=== PATIENT | male | born 1965 | race Caucasian/White ===

== ENCOUNTER → 2018-12-07 08:36 | Outpatient (CLI) | payer OTHER, SELFPAY ==
[2018-12-07 09:14] LABS: Basophils # 0.1 K/mm3 (0-0.2); Basophils % 1.2 % (0.1-2.0); Eosinophils # 0.2 K/mm3 (0.0-0.4); Hematocrit 40.4 % (42.0-52.0); Hemoglobin 13.4 g/dL (14.1-18.0); Lymphocytes # 2.3 K/mm3 (0.7-4.5); Mean Corpuscular HGB Conc 33.2 g/dL (31.8-35.4); Mean Corpuscular Hemoglobin 29.1 pg (27.0-31.2); Mean Corpuscular Volume 87.7 fl (80-94); Mean Platelet Volume 8.2 fl (7.4-10.4); Monocytes # 2.5 K/mm3 (0.1-1.0); Monocytes % 47.8 % (1.7-9.3); Neutrophils # 0.2 K/mm3 (1.8-7.8); Platelet Count 258 K/mm3 (142-424); Red Blood Count 4.61 M/mm3 (4.60-6.20); Red Cell Distribution Width 12.2 % (11.5-17.5); White Blood Count 5.3 K/mm3 (4.8-10.8)
[2018-12-07 09:35] LABS: Neutrophils % 3.1 % (37.0-80.0)
[2018-12-07 09:36] LABS: MANUAL DIFFERENTIAL MANUAL DIFFERENTIAL (MANUAL DIFF)
[2018-12-07 09:50] LABS: Hemoglobin A1C 6.1 % (0.0-7.0)
[2018-12-07 10:46] LABS: Eosinophils % 1 % (0-3); Lymphocytes % 39 % (10-50); Monocytes % 2 % (2-9); Neutrophils % 49 % (42-76); Platelet Estimate Normal; RBC Morphology Normal; Total Cells Counted 100
[2018-12-07 11:44] LABS: Alanine Aminotransferase 32 U/L (12-78); Albumin Level 3.7 gm/dL (3.4-5.0); Albumin/Globulin Ratio 1.1 (1.1-1.8); Alkaline Phosphatase 78 U/L (46-116); Anion Gap 15.3 mEq/L (5-15); Aspartate Amino Transferase 15 U/L (15-37); Bilirubin,Total 0.3 mg/dL (0.2-1.0); Blood Urea Nitrogen 16 mg/dL (7-18); Calcium 8.7 mg/dL (8.5-10.1); Carbon Dioxide 26 mmol/L (21.0-32.0); Chloride 106 mmol/L (98-107); Chol/HDL Ratio 3.3 (1-3.5); Cholesterol 192 mg/dL (140-200); Creatinine,Serum 0.86 mg/dL (0.70-1.30); Estimated Glomerular Filt Rate 94 ml/min (>60); GFR (African American) 113 ML/MIN (>60); Globulin 3.3 gm/dl (1.3-3.2); Glucose 106 mg/dL (74-106); HDL Cholesterol 59 mg/dL (27-67); LDL Cholesterol 124 mg/dL (0-130); Potassium 4.3 mmoL/L (3.5-5.1); Prostate Specific Ag Screen 1.1 ng/mL (0.0-4.0); Sodium 143 mmol/L (136-145); Thyroid Stimulating Hormone 4.31 uIU/ml (0.358-3.740); Triglycerides 44 mg/dL (30-200); VLDL Cholesterol 9 mg/dL (0-40)
== END ==
PROVIDERS: Visit Provider Nurse Practitioner
DX: Z12.5 Encounter for screening for malignant neoplasm of prostate (principal); Z13.220 Encounter for screening for lipoid disorders; Z13.1 Encounter for screening for diabetes mellitus; F41.8 Other specified anxiety disorders; E03.9 Hypothyroidism, unspecified; I10 Essential (primary) hypertension
CPT/HCPCS: 36415; 80053; 80061; 83036; 84436; 84443; 85007; 85025; G0103

== ENCOUNTER → 2019-02-04 16:26 | Outpatient (CLI) | payer OTHER, SELFPAY ==
--- NOTE | 2019-02-04 | XR_ITS ---
XR chest 2V HISTORY: ITS.REASON: CHEST PRESSURE ,SOA ORDERING PHYSICIAN: Sana Torres APRN PATIENT AGE: 53 years COMPARISON: 10/01/2018 FINDINGS: Borderline cardiomegaly without failure. Evidence of old granulomatous disease. Degenerative change thoracic spine. IMPRESSION: No change with no acute finding
== END ==
PROVIDERS: PCP Family Medicine; Visit Provider Nurse Practitioner
DX: R06.02 Shortness of breath (principal); R07.89 Other chest pain; R42 Dizziness and giddiness; R00.1 Bradycardia, unspecified
CPT/HCPCS: 71046; 93005

== ENCOUNTER → 2019-02-07 16:05 | Outpatient (CLI) | payer OTHER, SELFPAY | PROVIDERS: PCP Family Medicine; Visit Provider Nurse Practitioner | DX: R07.89 Other chest pain (principal); R42 Dizziness and giddiness; R00.1 Bradycardia, unspecified; R06.02 Shortness of breath | CPT/HCPCS: 93225; 93226 ==

== ENCOUNTER → 2019-03-07 12:20 | Outpatient (CLI) | payer OTHER, SELFPAY ==
--- NOTE | 2019-03-07 | CA_ITS ---
APPROVED REPORT Exam: Exercise Treadmill Technologist: Carla Joseph, Ht: 5 ft 8 in Wt: 240 lbs BSA: 2.21 m2 HR: 62 bpm BP: 120/67 mmHg Rhythm: SINUS RHYTHM Medical History Medical History: PRE-SYNCOPAL Medications: Levothyroxine,,,,, Lisinopril/HCTZ,,,,, Norvasc,,,,, Allergies: PCN Cardiac Risk Factors: HTN Stress Test Details Test: Vasiliy HR Resting HR: 67 bpm Max Heart Rate (APMHR): 169 bpm Max HR Achieved: 149 bpm Target HR (85% APMHR): 143 bpm % of APMHR: 88 Recovery HR: 96 bpm BP Resting BP: 138.0/76.0 mmHg Max BP: 204.0/76.0 mmHg Recovery BP: 204.0/76.0 mmHg ECG Resting ECG: Resting electrocardiogram showed sinus rhythm Stress ECG: With exercise there is less than 1.[address] segment depression noted from the baseline EKG. Clinical Exercise duration: 10:17 min Highest Stage Achieved: Exercise capacity: 12.8 METs Stress ECG Conclusion VASILIY PROTOCOL COMPLETED. EXERCISE 10:17. METS= 12.8. MAX HEART RATE 149 BPM. MAX BP 204/76. STOPPED DUE TO ARM WEAKNESS. STRESS ECHO PERFORMED. NO CHEST PAIN OR SOA. C/O ARM WEAKNESS AT PEAK EXERCISE. RESOLVED IN RECOVERY. OCCASIONAL PVC. OCCASIONAL PAC. OCCASIONAL ATRIAL COUPLETS. LESS THAN I.5MM ST DEPRESSION. STRESS ECHO-GXT ONLY. HYPERTENSIVE RESPONSE. GOOD EXERCISE CAPACITY. LESS THAN 1.5MM ST DEPRESSION. Resting echocardiogram showed normal left ventricular size and function. With exercise there is increase in contractility of all the segments of the myocardium with hyperdynamic left ventricular systolic function, without any obvious segmental wall motion abnormality to suggest underlying ischemic heart disease. Conclusions: 1. The EKG portion of the exercise stress echo is negative for ischemia, patient has good exercise capacity achieved 12.8 mets of workload on treadmill, the blood pressure response to exercise was hypertensive there was no exercise-induced chest discomfort. 2. No echocardiographic evidence of segmental wall motion abnormality to suggest underlying ischemic heart disease. 3. Normal stress echo except for hypertensive blood pressure response with exercise. Test Summary REST . . . . . . . Standing REST . . . . . . . Standing REST . . . . . . . Sitting REST 14:36 0.0 0.0 67 . 138/ 76 . . Stage 1 01:00 10.0 1.7 91 . . . . Stage 1 02:00 10.0 1.7 93 . . . . Stage 1 03:00 10.0 1.7 97 . 126/ 70 . . Stage 2 01:00 12.0 2.5 108 . . . . Stage 2 02:00 12.0 2.5 108 . 132/ 70 . . Stage 2 03:00 12.0 2.5 108 . 132/ 70 . . Stage 3 01:00 14.0 3.4 118 . . . . Stage 3 02:00 14.0 3.4 125 . 144/ 72 . . Stage 3 03:00 14.0 3.4 130 . 144/ 72 . . Stage 4 01:00 16.0 4.2 147 . . . . Stage 4 01:17 16.0 0.0 147 . . . Stop exercise at 10:17 RECOVERY 01:00 0.0 0.0 110 . . . . RECOVERY 02:00 0.0 0.0 94 . . . . RECOVERY 03:00 0.0 0.0 80 . 204/ 76 . . RECOVERY 04:00 0.0 0.0 78 . 157/ 60 . . RECOVERY 05:00 0.0 0.0 69 . 157/ 60 . . RECOVERY 05:53 0.0 0.0 70 . 148/ 60 . . Electronically signed by : Oleg Guallpa, 03/07/2019 16:29:27
--- NOTE | 2019-03-07 12:22 | CA_ITS ---
APPROVED REPORT EXAM: Comprehensive 2D, Doppler, and color-flow Echocardiogram Sausage Meat Trimmer: Marium Wakefield RT(R) Ht: 5 ft 8 in Wt: 240lbs BSA: 2.21 BP: 130/80 mmHg Indications: Abnormal ECG R94.31, Hypertension I10, Chest Pain R07.89 Medical History Medical History: HTN Exercise History: Physically active Echo Enhancing Agent Comments: Normal exercise stress echo except for hypertensive blood pressure response. Echo Procedure The patient underwent an Exercise Stress Test using . Blood pressure, heart rate, and EKG were monitored. An Echocardiogram was performed by stress test technician in four stages in quad fashion. At peak stress, four selected images were obtained and placed side by side with resting images for comparison. Stress Test Details HR Max Heart Rate (APMHR): 169 bpm Target HR (85% APMHR): 143 bpm BP ECG Conclusion Normal exercise stress echo except for hypertensive blood pressure response.
== END ==
PROVIDERS: PCP Nurse Practitioner; Visit Provider Physician Assistant
DX: R55 Syncope and collapse (principal); R07.9 Chest pain, unspecified; R42 Dizziness and giddiness; R00.1 Bradycardia, unspecified; R94.31 Abnormal electrocardiogram [ECG] [EKG]; F10.929 Alcohol use, unspecified with intoxication, unspecified
CPT/HCPCS: 93017; 93350

== ENCOUNTER → 2019-03-30 09:57 | Outpatient (CLI) | payer OTHER, SELFPAY ==
[2019-03-30 14:41] LABS: Alanine Aminotransferase 21 U/L (12-78); Albumin Level 3.6 gm/dL (3.4-5.0); Alkaline Phosphatase 93 U/L (46-116); Anion Gap 15.5 mEq/L (5-15); Aspartate Amino Transferase 17 U/L (15-37); Bilirubin,Total 0.2 mg/dL (0.2-1.0); Blood Urea Nitrogen 18 mg/dL (7-18); Calcium 8.7 mg/dL (8.5-10.1); Carbon Dioxide 25 mmol/L (21.0-32.0); Chloride 102 mmol/L (98-107); Creatinine,Serum 1.01 mg/dL (0.70-1.30); Estimated Glomerular Filt Rate 78 ml/min (>60); GFR (African American) 94 ML/MIN (>60); Globulin 3.5 gm/dl (1.3-3.2); Glucose 98 mg/dL (74-106); Hemoglobin A1C 6.5 % (0.0-7.0); Magnesium 1.8 mg/dL (1.4-2.2); Phosphorous 3.9 mg/dL (2.4-4.9); Potassium 4.5 mmoL/L (3.5-5.1); Sodium 138 mmol/L (136-145); Thyroid Stimulating Hormone 2.96 uIU/ml (0.358-3.740); Total Protein,Serum 7.1 gm/dL (6.4-8.2)
[2019-04-01 07:08] LABS: Vitamin B12 616 pg/mL (232-1245)
== END ==
PROVIDERS: PCP Nurse Practitioner; Visit Provider Nurse Practitioner
DX: R20.2 Paresthesia of skin (principal); E03.9 Hypothyroidism, unspecified; I10 Essential (primary) hypertension
CPT/HCPCS: 36415; 80053; 82607; 83036; 83735; 84100; 84443

== ENCOUNTER → 2019-07-06 08:28 | Outpatient (CLI) | payer OTHER, SELFPAY ==
[2019-07-06 09:31] LABS: Hemoglobin A1C 6.2 % (0.0-7.0)
[2019-07-06 09:43] LABS: Alanine Aminotransferase 20 U/L (12-78); Albumin Level 3.6 gm/dL (3.4-5.0); Albumin/Globulin Ratio 1.1 (1.1-1.8); Alkaline Phosphatase 80 U/L (46-116); Anion Gap 12.6 mEq/L (5-15); Aspartate Amino Transferase 13 U/L (15-37); Bilirubin,Total 0.2 mg/dL (0.2-1.0); Blood Urea Nitrogen 18 mg/dL (7-18); Calcium 8.6 mg/dL (8.5-10.1); Carbon Dioxide 29 mmol/L (21.0-32.0); Chloride 105 mmol/L (98-107); Cholesterol 251 mg/dL (140-200); Creatinine,Serum 0.86 mg/dL (0.70-1.30); Estimated Glomerular Filt Rate 93 ml/min (>60); GFR (African American) 113 ML/MIN (>60); Globulin 3.2 gm/dl (1.3-3.2); Glucose 114 mg/dL (74-106); HDL Cholesterol 62 mg/dL (27-67); LDL Cholesterol 173 mg/dL (0-130); Potassium 4.6 mmoL/L (3.5-5.1); Sodium 142 mmol/L (136-145); Thyroid Stimulating Hormone 5.24 uIU/ml (0.358-3.740); Total Protein,Serum 6.8 gm/dL (6.4-8.2); Triglycerides 82 mg/dL (30-200); VLDL Cholesterol 16 mg/dL (0-40)
== END ==
PROVIDERS: PCP Nurse Practitioner; Visit Provider Nurse Practitioner
DX: E78.5 Hyperlipidemia, unspecified (principal); E03.9 Hypothyroidism, unspecified; I10 Essential (primary) hypertension
CPT/HCPCS: 36415; 80053; 80061; 83036; 84443

== ENCOUNTER → 2019-10-16 11:11 | Outpatient (CLI) | payer OTHER, SELFPAY ==
--- NOTE | 2019-10-16 11:27 | ECG_ITS ---
APPROVED REPORT Exam: Resting ECG HR:53 bpm ECG Measurements Heart Rate 53 AXES KS 138 P 25 QRSd 88 QRS 92 QT 414 T 33 QTc 388 <Conclusion> Sinus bradycardia Rightward axis Borderline ECG Electronically signed by : Alli Navarrete, 10/17/2019 08:05:01
[2019-10-16 11:41] LABS: Basophils # 0.1 K/mm3 (0-0.2); Basophils % 1.5 % (0.1-2.0); Eosinophils # 0.3 K/mm3 (0.0-0.4); Eosinophils % 4.2 % (0.1-12.0); Hematocrit 40.2 % (42.0-52.0); Hemoglobin 13.1 g/dL (14.1-18.0); Lymphocytes # 2.9 K/mm3 (0.7-4.5); Lymphocytes % 36.3 % (10-50); Mean Corpuscular HGB Conc 32.7 g/dL (31.8-35.4); Mean Corpuscular Hemoglobin 29.8 pg (27.0-31.2); Mean Corpuscular Volume 91.2 fl (80-94); Mean Platelet Volume 9.1 fl (7.4-10.4); Monocytes # 3.9 K/mm3 (0.1-1.0); Monocytes % 49.8 % (1.7-9.3); Neutrophils # 0.6 K/mm3 (1.8-7.8); Platelet Count 301 K/mm3 (142-424); Red Blood Count 4.41 M/mm3 (4.60-6.20); Red Cell Distribution Width 13.5 % (11.5-17.5); White Blood Count 7.8 K/mm3 (4.8-10.8)
[2019-10-16 12:30] LABS: Neutrophils % 8.2 % (37.0-80.0)
[2019-10-16 12:32] LABS: Eosinophils % 1 % (0-3); Lymphocytes % 31 % (10-50); MANUAL DIFFERENTIAL MANUAL DIFFERENTIAL (MANUAL DIFF); Monocytes % 4 % (2-9); Neutrophils % 64 % (42-76); Platelet Estimate Normal; RBC Morphology Normal; Total Cells Counted 100
[2019-10-16 12:51] LABS: Anion Gap 12.4 mEq/L (5-15); Blood Urea Nitrogen 18 mg/dl (9-20); Calcium 9.4 mg/dl (8.4-10.2); Carbon Dioxide 26 mmol/L (22.0-30.0); Chloride 103 mmol/L (98-107); Estimated Glomerular Filt Rate 89 ml/min (>60); GFR (African American) 107 ML/MIN (>60); Glucose 107 mg/dl (74-100); Potassium 4.4 mmoL/L (3.5-5.1); Sodium 137 mmol/L (136-145)
== END ==
PROVIDERS: Visit Provider Otolaryngology
DX: Z01.818 Encounter for other preprocedural examination (principal); K13.21 Leukoplakia of oral mucosa, including tongue; K13.0 Diseases of lips
CPT/HCPCS: 36415; 80048; 85007; 85025; 93005

== ENCOUNTER 2019-10-23 06:57 | Day surgery (SDC) | payer OTHER, SELFPAY ==
[2019-10-21 11:06] VITALS: BMI 36.5
[2019-10-23] VITALS (9 sets, daily range): BP systolic 110–148; BP diastolic 40–78; PULSE 54–79; RESP 16–20; TEMP 36.1–36.7; O2SAT 63–98
--- NOTE | 2019-10-23 08:01 | P.PN_ITS ---
[facility] Anesthesia Checklist - Patient Identification Patient Identification: Arm Band, Verbal (Name & ) - Structural Data Admitted From: Home Planned Operative Procedure/s: ex lesion Consent for Planned Operative Procedure(s) Verified: Yes Verified Documents: History and Physical - NPO Status Verified Time NPO: 00:00 - Additional verifications Patient : No Anesthesia Reactions: No Hx Blood Transfusions: No Blood Transfusion Reaction: No Cephalosporin Allergy: No Previous Colonoscopy: No - Cardiovascular Assessment Heart Sounds: S1 & S2 Pulse Strength: Baseline Pulse Rhythm: Regular Peripheral Edema: No - Airway Assessment C-Spine Mobility Assessed: Yes TMJ Mobility Assessed: Yes Dentition: Edentulous - Neurological Assessment Level of Consciousness: Awake, Alert, Appropriate Hx Seizures: No Numbness or tingling in extremities: No - Anesthesia Plan Anesthesia Risk discussed: Yes Anesthesia Plan: Verified ASA Class: II Anesthesia Type: MAC [facility] History I have reviewed the patient's past medical history: Yes 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 Denies: Blood Transfusion Reaction Anesthesia experience/problems:: none Laterality Cases: Left: Arthroscopy Knee Other Surgeries: Yes: No Previous Surgery, Appendectomy. 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
--- NOTE | 2019-10-23 10:24 | P.PN_ITS ---
[facility] Anesthesia Record Part I Intake, IV Amount: 900 Estimated blood loss (mL): 5 Urine output (mL): 0 Blood Pressure: 148/49 SaO2: 93 Pulse Rate: 79 Respiratory Rate: 16 Temperature: 98 F Patient is:: Drowsy, Stable Stable to PACU at:: 10:10
--- NOTE | 2019-10-23 15:11 | P.PN_ITS ---
[facility] Anesthesia Record Part II Discharge Time: 10:40 Destination: Surgical Day Care (OP Surgery) PACU nurse assessment reviewed?: Yes Patient Condition:: Good Anesthesia Complications:: None Swallowing reflex intact?: Yes Cyanosis?: No Blood Pressure: 120/69 Pulse Rate: 62 Temperature: 98 F Mental Status: Alert & Oriented Pain level:: 0 Nausea and/or vomitting:: None Intake, IV Amount: 0
--- NOTE | 2019-10-23 16:38 | HMH.OPNOTE ---
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 Biopsy of lesion right posterior alveolus floor of mouth base of tongue region 2. Excision of neoplasm left corner of mouth with tissue rearrangement geometric plastic repair Surgeon:: Tian Victoria MD REFINISH TECHNICIAN:: Yannick Tan Anesthesia: GETA Estimated blood loss (mL): 7 Operative findings:: same Operative note:: With patient under general anesthesia the SlimLine laryngoscope and telescope was used to examine the posterior floor of mouth posterior lower alveolus and base of tongue region. There was an area of leukoplakia and biopsies were taken from the area of leukoplakia and submitted. Bleeding was stopped with topical epinephrine. The patient was then repositioned in the face was prepped and draped the lesion at the left corner of the mouth with it was infiltrated with 3 cc of 2% lidocaine containing epinephrine. The corner of the mouth on the left side along with the left red lip was excised and submitted. Bleeding was stopped with bipolar cautery. A tissue rearrangement geometric plastic repair was done after anterior and posterior incisions were made and the defect was repaired in a tissue rearrangement fashion using 4-0 nylon sutures. An excellent repair was obtained. patient tolerated the procedure well and was sent to recovery in good general condition. Condition: stable Disposition: PACU Complications:: none
== END 2019-10-23 11:10 | disposition home or self-care (01) ==
PROVIDERS: PCP Nurse Practitioner; Visit Provider Otolaryngology
PROC: (CPT 14060; principal; 2019-10-23 08:30)
DX: D37.09 Neoplasm of uncertain behavior of other specified sites of the oral cavity (principal); D37.01 Neoplasm of uncertain behavior of lip; Z88.0 Allergy status to penicillin; Z79.899 Other long term (current) drug therapy; I10 Essential (primary) hypertension; E03.9 Hypothyroidism, unspecified
CPT/HCPCS: 14060; 41116; 96372; 96374; J2405; J2710

== ENCOUNTER → 2020-05-13 12:16 | Outpatient (CLI) | payer BC, SELFPAY ==
[2020-05-14 15:45] LABS: Covid-19 Nasal PCR Sendout Lex Not Detected
== END ==
PROVIDERS: PCP Nurse Practitioner; Visit Provider Family Medicine
DX: Z03.818 Encounter for observation for suspected exposure to other biological agents ruled out (principal)
CPT/HCPCS: U0004

== ENCOUNTER → 2020-06-14 09:51 | Outpatient (CLI) | payer BC, SELFPAY ==
--- NOTE | 2020-06-14 09:56 | XR_ITS ---
PROCEDURE: XR CHEST PORTABLE CLINICAL HISTORY: COVID OUPATIENT Cough and shortness of air COMPARISON: CR CXR CHEST(2 VIEWS-NOT PORTABLE) from 09/26/2014 CR CXR2V XR chest 2V from 10/01/2018 FINDINGS: There is cardiomegaly without failure. Calcified granuloma is present in the left hilar region No acute bony abnormalities. IMPRESSION: No acute findings. Dictated by: Wolf Ruiz MD 06/14/2020 10:44 Wolf Ruiz MD in [place] 06/14/2020 10:44
[2020-06-14 11:02] LABS: Basophils # 0.1 K/mm3 (0-0.2); Basophils % 0.3 % (0.1-2.0); Hematocrit 42.7 % (42.0-52.0); Hemoglobin 14.5 g/dL (14.1-18.0); Lymphocytes % 24.2 % (10-50); Mean Corpuscular HGB Conc 33.9 g/dL (31.8-35.4); Mean Corpuscular Volume 88.4 fl (80-94); Mean Platelet Volume 8.6 fl (7.4-10.4); Monocytes # 14.7 K/mm3 (0.1-1.0); Monocytes % 70.3 % (1.7-9.3); Neutrophils # 1.1 K/mm3 (1.8-7.8); Neutrophils % 5.2 % (37.0-80.0); Platelet Count 333 K/mm3 (142-424); Red Blood Count 4.83 M/mm3 (4.60-6.20); Red Cell Distribution Width 13.3 % (11.5-17.5); White Blood Count 20.9 K/mm3 (4.8-10.8)
[2020-06-14 11:03] LABS: MANUAL DIFFERENTIAL MANUAL DIFFERENTIAL (MANUAL DIFF)
[2020-06-14 11:39] LABS: Lymphocytes % 11 % (10-50); Monocytes % 10 % (2-9); Neutrophils % 75 % (42-76); Platelet Estimate Normal; RBC Morphology Normal; Total Cells Counted 100
== END ==
PROVIDERS: PCP Nurse Practitioner; Visit Provider Nurse Practitioner
DX: Z03.818 Encounter for observation for suspected exposure to other biological agents ruled out (principal); Z86.19 Personal history of other infectious and parasitic diseases; R06.02 Shortness of breath; R05 Cough
CPT/HCPCS: 36415; 71045; 85007; 85025

== ENCOUNTER 2020-06-18 09:52 | Emergency (ER) | payer BC, SELFPAY ==
[2020-06-18 09:55] VITALS: BP 135/63; PULSE 61; RESP 22; TEMP 36.6; O2SAT 98; BMI 38.0
--- NOTE | 2020-06-18 10:13 | CT_ITS ---
PROCEDURE: CT ANGIO CHEST CLINCIAL INDICATION: PE protocol Chest pain, left lower chest pain Covid19 positive COMPARISON: No exams were available for comparison TECHNIQUE: IV Contrast: 70ML Isovue 370 Axial images obtained with sagittal and coronal reformats. All CT scans at the facility use one or more dose reduction, viz: automated exposure control, ma/kV adjustment per patient size (including targeted exams where dose is matched to indication, i.e. head), or iterative reconstruction technique. FINDINGS: HEART AND MEDIASTINAL STRUCTURES: No evidence of aortic aneurysm or dissection. No evidence of pulmonary embolus. No mediastinal or hilar mass or adenopathy. LUNGS AND PLEURAL SPACES: Mild subpleural patchy areas of atelectasis/infiltrate noted in the right lower lobe posteriorly. No effusions. No areas of cavitation. BONY STRUCTURES: Degenerative changes are present in the thoracic spine. There is an area of sclerosis involving the inferior aspect of the T10 vertebral body. UPPER ABDOMEN: Left adrenal adenoma at 2.5 cm. ADDITIONAL FINDINGS: No other significant abnormalities. IMPRESSION: 1. No evidence of pulmonary embolus. 2. Patchy atelectasis or subpleural area of infiltrate in the right lower lobe posteriorly Dictated by: Wolf Ruiz MD 06/18/2020 10:57 Wolf Ruiz MD in [place] 06/18/2020 10:57
[2020-06-18 10:17] VITALS: BP 135/63; PULSE 60; O2SAT 99
--- NOTE | 2020-06-18 10:24 | PC.NURSE ---
Pt to rad.
[2020-06-18 10:36] LABS: Basophils # 0.1 K/mm3 (0-0.2); Basophils % 0.8 % (0.1-2.0); Eosinophils # 0.2 K/mm3 (0.0-0.4); Eosinophils % 1.2 % (0.1-12.0); Hematocrit 43.3 % (42.0-52.0); Hemoglobin 14.6 g/dL (14.1-18.0); Lymphocytes # 5.9 K/mm3 (0.7-4.5); Lymphocytes % 36.1 % (10-50); Mean Corpuscular HGB Conc 33.8 g/dL (31.8-35.4); Mean Corpuscular Hemoglobin 30.4 pg (27.0-31.2); Mean Corpuscular Volume 90.2 fl (80-94); Mean Platelet Volume 8.4 fl (7.4-10.4); Monocytes # 9.7 K/mm3 (0.1-1.0); Monocytes % 59.1 % (1.7-9.3); Neutrophils # 0.5 K/mm3 (1.8-7.8); Platelet Count 327 K/mm3 (142-424); Red Cell Distribution Width 14.3 % (11.5-17.5); White Blood Count 16.4 K/mm3 (4.8-10.8)
[2020-06-18 10:37] LABS: Chloride 99 mmol/L (98-107); Sodium 134 mmol/L (136-145)
[2020-06-18 10:38] LABS: Potassium 3.2 mmoL/L (3.5-5.1)
[2020-06-18 10:40] LABS: Alanine Aminotransferase 40 U/L (12-78); Alkaline Phosphatase 62 U/L (38-126); Aspartate Amino Transferase 28 U/L (17-59); Bilirubin,Total 0.4 mg/dl (0.2-1.3); Blood Urea Nitrogen 30 mg/dl (9-20); Creatinine Clearance Estimated 137 mL/min (50-200); Estimated Glomerular Filt Rate 78 ml/min (>60); GFR (African American) 95 ML/MIN (>60)
[2020-06-18 10:41] LABS: Albumin Level 3.7 g/dl (3.5-5.0); Albumin/Globulin Ratio 1.3 (1.1-1.8); Anion Gap 11.2 mEq/L (5-15); Calcium 8.6 mg/dl (8.4-10.2); Carbon Dioxide 27 mmol/L (22.0-30.0); Globulin 2.8 g/dL (1.3-3.2); Glucose 141 mg/dl (74-100); Total Protein,Serum 6.5 g/dl (6.3-8.2)
[2020-06-18 10:46] VITALS: BP 152/73; PULSE 58; O2SAT 98
[2020-06-18 11:03] VITALS: BP 137/64; PULSE 55; O2SAT 98
[2020-06-18 11:08] LABS: Neutrophils % 2.8 % (37.0-80.0)
[2020-06-18 11:11] LABS: MANUAL DIFFERENTIAL MANUAL DIFFERENTIAL (MANUAL DIFF)
[2020-06-18 11:15] LABS: Lymphocytes % 19 % (10-50); Monocytes % 8 % (2-9); Neutrophils % 66 % (42-76); Platelet Estimate Normal; RBC Morphology Normal; Total Cells Counted 100
--- NOTE | 2020-06-18 11:29 | HMH.EDSOB ---
ED Disposition Clinical Impression: Pleurisy Disposition: Home, Self-Care Condition on Discharge: Good Instructions: DI for Shortness of Breath Additional Instructions: please finish meds and recheck if needed Referrals: Chika Torres APRN [Primary Care Provider] - - Critical Care Critical Care Time: No Attestation: On 06/18/20, the high probability of a clinically significant, sudden or life threatening deterioration of the following system(s) required my full and direct attention, intervention and personal management. The time I documented below is in addition to time spent performing reported procedures but includes the following listed in this critical care notation. Medical Decision Making - Medical Records Medical records reviewed: Yes: I reviewed the patient's medical records. - Benjamín Inquiry Pt receiving controlled substance: No Vital Signs: 06/18/20 09:55 06/18/20 10:17 06/18/20 10:46 Temperature 97.8 F Temperature Source Oral Pulse Rate [Radial] 61 60 58 L Respiratory Rate 22 Blood Pressure [Right Arm] 135/63 135/63 152/73 H Blood Pressure Mean [Right Arm] 87 87 99 Blood Pressure Source [Right Arm] Automatic Cuff Automatic Cuff Blood Pressure Position [Right Arm] Sitting Sitting Sitting 02 Sat by Pulse Oximetry 98 99 98 Oxygen Delivery Method Room Air Room Air 06/18/20 11:03 06/18/20 11:53 Temperature Temperature Source Pulse Rate [Radial] 55 L 55 L Respiratory Rate Blood Pressure [Right Arm] 137/64 111/66 Blood Pressure Mean [Right Arm] 88 81 Blood Pressure Source [Right Arm] Automatic Cuff Automatic Cuff Blood Pressure Position [Right Arm] Sitting Sitting 02 Sat by Pulse Oximetry 98 98 Oxygen Delivery Method Room Air Room Air - Lab Data Lab results reviewed: Yes: I reviewed the patient's lab results. Lab Results 06/18/20 10:21: WBC 16.4 H, RBC 4.80, Hgb 14.6, Hct 43.3, MCV 90.2, MCH 30.4, MCHC 33.8, RDW 14.3, Plt Count 327, MPV 8.4, Neut % (Auto) 2.8 L, Lymph % (Auto) 36.1, [place] % (Auto) 59.1 H, Eos % (Auto) 1.2, Baso % (Auto) 0.8, Neut # (Auto) 0.5 L*, Lymph # (Auto) 5.9 H, Screven # (Auto) 9.7 H, Eos # (Auto) 0.2, Baso # (Auto) 0.1, Total Counted 100, Neutrophils % (Manual) 66, Lymphocytes % (Manual) 19, Atypical Lymphs % 7.0, Monocytes % (Manual) 8, Differential Comment , Platelet Estimate Normal, RBC Morphology Normal 06/18/20 10:21: Sodium 134 L, Potassium 3.2 L, Chloride 99, Carbon Dioxide 27, Anion Gap 11.2, BUN 30 H, Creatinine 1.00, Estimated Creat Clear 137, Estimated GFR 78, Est GFR ( Amer) 95, Glucose 141 H, Calcium 8.6, Total Bilirubin 0.4, AST 28, ALT 40, Alkaline Phosphatase 62, Total Protein 6.5, Albumin 3.7, Globulin 2.8, Albumin/Globulin Ratio 1.3 06/18/20 10:25: Troponin I < 0.01 Result diagrams: 06/18/20 10:21 06/18/20 10:21 Orders (Tests/Meds): ED MEDICATIONS Discontinued Medications Generic Name Dose Route Start Last Admin Trade Name Freq PRN Reason Stop Dose Admin Iopamidol 70 ml 06/18/20 10:38 06/18/20 10:39 Iopamidol-370 (76%);100ml Bottle IV 06/18/20 10:39 70 ml ONCE ONE Administration Sodium Chloride 50 ml 06/18/20 10:38 06/18/20 10:39 0.9 % Sodium Chloride 50 Ml Vial IV 06/18/20 10:39 50 ml ONCE ONE Administration Sodium Chloride 10 ml 06/18/20 10:38 06/18/20 10:39 Sodium Chloride 0.9% 10ml Syr (Rad Only) IV 06/18/20 10:39 10 ml ONCE ONE Administration ORDERS Category Date Time Status Troponin I Q3H Lab 06/18/20 14:45 Ordered Troponin I Q3H Lab 06/18/20 17:45 Ordered - CT Data CT Scan: Chest Time Received: 13:[address] Reviewed: Yes: I have viewed the radiologist's interpretation Preliminary Findings: Normal/NAD (nonspecific) Medical Decision Narrative: pt with no specific finding and will finish meds and recheck if needed has resolving covid Resp/SOB HPI - General Chief Complaint: Shortness of Breath/Dyspnea Stated Complaint: Covid patient, referred by chika barth
[2020-06-18 11:53] VITALS: BP 111/66; PULSE 55; O2SAT 98
[2020-06-18 11:54] LABS: Troponin I < 0.01 ng/ml (0.00-0.034)
[2020-06-18 13:25] VITALS: BP 117/74; PULSE 55; RESP 16; TEMP 36.4; O2SAT 98
== END 2020-06-18 13:26 | disposition home or self-care (01) ==
PROVIDERS: Emergency Provider Emergency Medicine; PCP Nurse Practitioner
DX: U07.1 COVID-19 (principal); R09.1 Pleurisy; R06.02 Shortness of breath; I10 Essential (primary) hypertension; E03.9 Hypothyroidism, unspecified; F17.290 Nicotine dependence, other tobacco product, uncomplicated; Z79.899 Other long term (current) drug therapy; Z88.0 Allergy status to penicillin
CPT/HCPCS: 71275; 80053; 84484; 85007; 85025; 99283; Q9967

== ENCOUNTER → 2020-10-14 12:09 | Outpatient (CLI) | payer BC, SELFPAY ==
--- NOTE | 2020-10-14 12:15 | XR_ITS ---
PROCEDURE: XR HAND RT MIN 3V CLINICAL INDICATION: RT HAND PAIN COMPARISON: CR HANDL3 HAND-LT-3 VIEWS from 06/10/2015 FINDINGS: No fracture or dislocation. No lytic or blastic change. There is normal mineralization. Subarticular/subchondral cystic changes are present at the base of the 1st metacarpal, the distal aspect of the 3rd metacarpal, the distal aspect of proximal and mid phalanges of the 2nd and 3rd digits laterally. Mild osteoarthritic changes are present at the 1st metacarpophalangeal joint and 3rd metacarpophalangeal joint as well as the 1st metacarpal-carpal joint. Other findings:None. IMPRESSION: Osteoarthritic changes with subarticular/sub chondral cystic changes as described above. Dictated by: Wolf Ruiz MD 10/14/2020 14:39 Wolf Ruiz MD in [place] 10/14/2020 14:39
== END ==
PROVIDERS: PCP Nurse Practitioner; Visit Provider Nurse Practitioner
DX: M79.641 Pain in right hand (principal)
CPT/HCPCS: 73130

== ENCOUNTER → 2020-10-25 18:12 | Outpatient (CLI) | payer BC, SELFPAY ==
--- NOTE | 2020-10-25 18:39 | XR_ITS ---
PROCEDURE: XR LUMBAR SPINE MIN 4V CLINICAL INDICATION: LOW BACK PAIN RADIATING DOWN RIGHT HIP FOR A YEAR COMPARISON: CT CT ANGIO CHEST from 06/18/2020 FINDINGS: No fracture or dislocation. No lytic or blastic change. There is normal mineralization. There are degenerative changes in the lower thoracic spine. Mild degenerative disc disease L4-5. The SI joints have an unremarkable appearance. Other findings:None. IMPRESSION: Mild degenerative changes, no acute finding Dictated by: Wolf Ruiz MD 10/26/2020 05:16 Wolf Ruiz MD in [place] 10/26/2020 05:16
== END ==
PROVIDERS: PCP Nurse Practitioner; Visit Provider Nurse Practitioner
DX: M54.41 Lumbago with sciatica, right side (principal)
CPT/HCPCS: 72110

== ENCOUNTER 2020-10-28 11:56 | Emergency (ER) | payer BC, SELFPAY ==
[2020-10-28 11:56] VITALS: BP 145/71; PULSE 65; RESP 16; TEMP 36.6; O2SAT 99; BMI 37.2
[2020-10-28 12:05] VITALS: BP 148/79; PULSE 72; RESP 16; TEMP 36.7; O2SAT 100; BMI 37.2
--- NOTE | 2020-10-28 12:24 | HMH.EDUTC ---
[facility] [place] Disposition Clinical Impression: Low back pain with sciatica Qualifiers: Chronicity: unspecified Back pain laterality: right Sciatica laterality: sciatica of right side Qualified Code(s): M54.41 - Lumbago with sciatica, right side Disposition: Home, Self-Care Condition on Discharge: Good Instructions: Low Back Pain, DI for Low Back Pain Additional Instructions: Go home and rest. It would be best if you rested tomorrow too. No heavy lifting. No twisting. Take the oral medications as directed. The muscle relaxer will make you drowsy, so don't drive or operate heavy machinery after taking it. Don't start the oral steroids (prednisone) until tomorrow, since you had the shots in here today. Follow up with your regular doctor. GO TO THE ER FOR ANY WORSENING SYMPTOMS OR CONCERN, ESPECIALLY BOWEL OR BLADDER ISSUES, SADDLE AREA NUMBNESS, FEVER, ETC Prescriptions: Cyclobenzaprine HCl [Flexeril 10mg tablet] 10 mg PO BIDP PRN #30 tab PRN Reason: Muscle Spasm Transmission Status: Received by [id number] predniSONE [Prednisone 20mg Tab] 20 mg PO BID 4 Days #8 tab Transmission Status: Received by [id number] Referrals: Sana Torres APRN [Primary Care Provider] - Time of Disposition: 13:03 Medical Decision Making - Medical Records Medical records reviewed: No: I reviewed the patient's medical records. - Benjamín Inquiry Pt receiving controlled substance: No Vital Signs: 10/28/20 11:56 10/28/20 12:05 10/28/20 13:42 Temperature 97.8 F 98.1 F 98 F Temperature Source Oral Oral Pulse Rate 74 Pulse Rate [Left] 72 Pulse Rate [Right] 65 Respiratory Rate 16 16 16 Blood Pressure 151/45 H Blood Pressure [Left Arm] 148/79 H Blood Pressure [Right Arm] 145/71 H Blood Pressure Mean [Left Arm] 102 Blood Pressure Mean [Right Arm] 95 Blood Pressure Source [Left Arm] Automatic Cuff Blood Pressure Position [Left Arm] Sitting 02 Sat by Pulse Oximetry 99 100 Oxygen Delivery Method Room Air Room Air Orders (Tests/Meds): ED MEDICATIONS Discontinued Medications Generic Name Dose Route Start Last Admin Trade Name Freq PRN Reason Stop Dose Admin Ketorolac Tromethamine 60 mg 10/28/20 12:37 10/28/20 12:44 Ketorolac 60mg/2ml Vial IM 10/28/20 12:38 60 mg ONCE ONE Administration Methylprednisolone Sodium Succinate 125 mg 10/28/20 12:37 10/28/20 12:44 Methylprednisolone Sod Succ 125mg Vial IM 10/28/20 12:38 125 mg ONCE ONE Administration [facility] [place] HPI - General Stated complaint: lower back pain, down legs to feet,no accident Time Seen by Provider: 10/28/20 12:24 Mode of Arrival: Ambulatory Source of Information: Patient Limitations: No Limitations Description of Symptoms (Recalled from Triage Doc. by RN): PT STATES HE HAS ONGOING LOWER BACK PAIN THAT RADIATES TO HIS RIGHT HIP AND DOWN HIS LEG X3 WEEKS. PT CAME IN HERE SUNDAY WITH AN ORDER FROM HIS PCP FOR SPINAL XRAYS. PT STATES HIS PAIN IS 10/10 HEENT Symptoms (Recalled from RN notes): No Resp Symptoms (Recalled from RN notes): No Skin Symptoms (Recalled from RN notes): No MS Symptoms (Recalled from RN notes): Yes (LOWER BACK PAIN RADIATING DOWN HIS RIGHT LEG) Functional Status (Recalled from RN notes): NA - History of Present Illness Provider Complaint: He reports that he has had low back pain that radiates down his right leg for the past 1 week. He denies any known injury. - Related Data Home Medications Medication Instructions Recorded Confirmed cyclobenzaprine 10 mg tablet 10 mg PO TID PRN 04/30/19 11/10/19 meloxicam 15 mg tablet 15 mg PO DAILY 10/16/19 11/10/19 Amlodipine Besylate [Amlodipine 5 mg PO DAILY 10/21/19 11/10/19 5mg tab] Lisinopril/Hydrochlorothiazide 1 tab PO DAILY 10/21/19 11/10/19 [Lisinopril-Hctz 20-25 mg Tab] cetirizine 10 mg tablet 10 mg PO tab 11/10/19 11/10/19 levothyroxine 75 mcg tablet 75 mcg PO DAILY tab 11/10/19 11/10/19 sertraline 100 mg ta
[2020-10-28 13:42] VITALS: BP 151/45; PULSE 74; RESP 16; TEMP 36.6
== END 2020-10-28 13:10 | disposition home or self-care (01) ==
PROVIDERS: Emergency Provider Nurse Practitioner Family; PCP Nurse Practitioner
DX: M54.41 Lumbago with sciatica, right side (principal); I10 Essential (primary) hypertension; Z88.0 Allergy status to penicillin; F17.210 Nicotine dependence, cigarettes, uncomplicated; Z79.899 Other long term (current) drug therapy
CPT/HCPCS: 96372; 99202; G0463

== ENCOUNTER → 2020-11-05 14:53 | Outpatient (CLI) | payer BC, SELFPAY ==
--- NOTE | 2020-11-05 14:56 | MR_ITS ---
PROCEDURE: MR LUMBAR SPINE WO CON CLINICAL INDICATION: ACUTE MIDLINE LOW BACK PAIN WITH RT SCIATICA Low back pain into rt hip and down leg. No injury. Symptoms x2-3months. COMPARISON: CR XR LUMBAR SPINE MIN 4V from 10/25/2020 TECHNIQUE: Standard multiplanar multiecho sequences are performed without contrast. 3-D MIP and myelographic images are also rendered and reviewed FINDINGS: There is normal alignment. The spinal cord ends at the L1 level. T11-T12: Mild degenerative disc disease. Increased T1 and T2 signal involves the anterior aspect of T12 consistent with lipomata changes T12-L1: Mild degenerative disc disease. L1-L2: Unremarkable. L2-L3: Unremarkable. L3-L4: Unremarkable. L4-5: There is a medium to large size right paracentral disc herniation with superior extrusion. The disc is extruded cephalad by approximately 12 mm. There is moderate to severe impingement upon the thecal sac and nerve roots centrally and on the right with the greatest amount of impingement upon the right L5 nerve root. Also appears to be mild impingement upon the exiting L4 nerve root. There is a small foraminal disc osteophyte complex on the right. L5-S1: Mild degenerative disc disease with minimal bulging disc along with facet and ligamentum hypertrophy. There is mild left-sided foraminal narrowing. Probable small hemangioma at S2 at 1 cm. IMPRESSION: 1. L4-5: There is a medium to large size right paracentral disc herniation with superior extrusion. The disc is extruded cephalad by approximately 12 mm. There is moderate to severe impingement upon the thecal sac and nerve roots centrally and on the right with the greatest amount of impingement upon the right L5 nerve root. There also appears to be mild impingement upon the exiting right L4 nerve root. There is a small foraminal disc osteophyte complex on the right. 2. L5-S1: Mild degenerative disc disease with minimal bulging disc along with facet and ligamentum hypertrophy. There is mild left-sided foraminal narrowing. Probable small hemangioma at S2 at 1 cm. Dictated by: Wolf Ruiz MD 11/06/2020 09:16 Wolf Ruiz MD in [place] 11/06/2020 09:16
== END ==
PROVIDERS: PCP Nurse Practitioner; Visit Provider Nurse Practitioner
DX: M54.41 Lumbago with sciatica, right side (principal); M51.36 Other intervertebral disc degeneration, lumbar region
CPT/HCPCS: 72148; 76376

== ENCOUNTER 2020-11-11 15:50 | Outpatient (RCR) | payer BC, SELFPAY ==
--- NOTE | 2020-11-11 16:47 | HMH.PTOPEV ---
PT Outpatient Evaluation Rehab PT Outpatient Evaluation Start: 11/11/20 15:58 Freq: Status: Active Protocol: Document 11/11/20 16:31 MARÍA (Rec: 11/11/20 16:46 NURYARMANDO [id number]) Electronically Signed By Param Geronimo, PT 11/11/20 16:31 Outpatient Therapy Subjective History Subjective History Patient is a 55 year old male presenting to outpatient PT with reports of chronic LBP with RLE radicular sympotoms that have progressively gotten worse over the past month. Symptoms of insidious onset. Most recent imaging indicates med-large L4/5 disc bulge, as well min disc bulge at L5/S1 with DDD. 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 Chief Complaint Pain,Stiff,Paresthesia Symptom Type Ache,Numbness,Tingling Symptoms Relieved By Rest/Positioning,Prescription Meds Symptoms Aggravated By Standing,Bending/Stooping, Physical Activity,Lifting Prior Functional Limitations None Current Functional Limitations Lifting,Housework,Standing, Walking,Bending/Stooping Symptom Description Constant but Variable Level of pain today (0-10) 7 Pain scale - at its best (0-10) 4 Pain scale - at its worst (0-10) 10 Lumbopelvic Eval Posture Thoracic Spine Posture Standing Position Increased Kyphosis Lumbar Spine Posture Standing Position Increased Lordosis Assistive device Assistive Devices None / NA Palapation tenderness bilateral lumbar spinal tenderness Yes: L4-S1 3/4 Lumbar/Sacral Palpation Findings Tenderness Accessory Movement L4 bilateral L5 bilateral S1 bilateral Range of Motion Lumbar Spine Active Flexion Range of 65 Motion (degrees) Lumbar Spine Active Extension Range of 18 dec symptoms Motion (degrees) Left Lumbar Spine Lateral Flexion Active 25 Range of Motion (degrees) Right Lumbar Spine Lateral Flexion 20 Active Range of Motion (degrees) Lumbar Spine ROM Limitations Soft Tissue Tightness,Bony Restriction Manual Muscle Test Bilateral Knee Extension Strength Grade 5 Normal Knee Flexion Strength Grade 5 Normal Hip Flexion Strength Grade 5 Normal Extensor Hallucis Longus Strength G
== END 2020-11-11 15:55 | disposition home or self-care (01) ==
LOC: PT 15:50
PROVIDERS: PCP Nurse Practitioner; Visit Provider Nurse Practitioner
DX: M51.36 Other intervertebral disc degeneration, lumbar region (principal)
CPT/HCPCS: 97163

== ENCOUNTER → 2021-03-26 15:40 | Outpatient (CLI) | payer BC, SELFPAY | PROVIDERS: Visit Provider Nurse Practitioner Family | DX: Z20.822 Contact with and (suspected) exposure to COVID-19 (principal); U07.1 COVID-19 | CPT/HCPCS: C9803; U0003; U0005 ==

== ENCOUNTER 2021-03-30 09:49 | Outpatient (CLI) | payer BC, SELFPAY ==
[2021-03-30] VITALS (7 sets, daily range): BP systolic 114–147; BP diastolic 56–77; PULSE 53–62; RESP 16; TEMP 36.9–37; O2SAT 97–98
== END 2021-03-30 12:10 | disposition home or self-care (01) ==
PROVIDERS: PCP Nurse Practitioner; Visit Provider Nurse Practitioner
DX: U07.1 COVID-19 (principal)
CPT/HCPCS: 96365

== ENCOUNTER → 2021-07-06 10:16 | Outpatient (CLI) | payer BC, SELFPAY ==
--- NOTE | 2021-07-06 10:21 | XR_ITS ---
FINAL REPORT CLINICAL HISTORY: . cough, fever FINDINGS: The heart size is normal. There is a calcified left hilar lymph node. The lungs are underinflated. There is no focal infiltrate or edema. There are no pleural effusions. There is no pneumothorax. There is no osseous abnormality. IMPRESSION: No acute cardiopulmonary process Reviewed, Interpreted and Dictated by Manpreet Stovall MD Transcribed by Duarte West Authenticated by Manpreet Stovall MD on 07/06/2021 12:17:50 PM [facility]
[2021-07-06 10:56] LABS: Adenovirus,PCR Not Detected (NotDetected); Coronavirus 229E Not Detected (NotDetected); Coronavirus NL63 Not Detected (NotDetected); Coronavirus OC43 Not Detected (NotDetected); Coronovirus HKU1,PCR Not Detected (NotDetected); Human Metapneumovirus Not Detected (NotDetected); Influenza A, PCR Not Detected (NotDetected); Influenza AH1, 2009 Not Detected (NotDetected); Influenza AH1, PCR Not Detected (NotDetected); Influenza AH3,PCR Not Detected (NotDetected); Influenza B, PCR Not Detected (NotDetected); Parainfluenza 1, PCR Not Detected (NotDetected); Parainfluenza 2, PCR Not Detected (NotDetected); Parainfluenza 3, PCR Not Detected (NotDetected); Parainfluenza 4, PCR Not Detected (NotDetected); Rhinovirus/Enterovirus Not Detected (NotDetected)
[2021-07-06 10:57] LABS: Bordetella Pertussis Not Detected (NotDetected); Chlamydophila Pneumoniae, PCR Not Detected (NotDetected); Mycoplasma Pneumoniae, PCR Not Detected (NotDetected); Respiratory Syncytial Virus Not Detected (NotDetected)
[2021-07-06 11:26] LABS: Basophils # 0.1 K/mm3 (0-0.2); Basophils % 1.2 % (0.1-2.0); Eosinophils # 0.4 K/mm3 (0.0-0.4); Eosinophils % 3.9 % (0.1-12.0); Hematocrit 42.9 % (42.0-52.0); Hemoglobin 13.9 g/dL (14.1-18.0); Lymphocytes # 3.2 K/mm3 (0.7-4.5); Lymphocytes % 32.8 % (10-50); Mean Corpuscular HGB Conc 32.3 g/dL (31.8-35.4); Mean Corpuscular Hemoglobin 29.7 pg (27.0-31.2); Mean Corpuscular Volume 91.9 fl (80-94); Mean Platelet Volume 8.7 fl (7.4-10.4); Monocytes # 5.4 K/mm3 (0.1-1.0); Monocytes % 55.9 % (1.7-9.3); Neutrophils # 0.6 K/mm3 (1.8-7.8); Platelet Count 288 K/mm3 (142-424); Red Blood Count 4.67 M/mm3 (4.60-6.20); Red Cell Distribution Width 13.7 % (11.5-17.5); White Blood Count 9.6 K/mm3 (4.8-10.8)
[2021-07-06 11:34] LABS: Neutrophils % 6.2 % (37.0-80.0)
[2021-07-06 11:35] LABS: MANUAL DIFFERENTIAL MANUAL DIFFERENTIAL (MANUAL DIFF)
[2021-07-06 11:46] LABS: Strep Scrn Group A (Rapid) Negative (Negative)
[2021-07-06 12:23] LABS: Eosinophils % 5 % (0-3); Lymphocytes % 17 % (10-50); Monocytes % 4 % (2-9); Neutrophils % 74 % (42-76); Total Cells Counted 100
[2021-07-06 12:24] LABS: Platelet Estimate Normal; RBC Morphology Normal
[2021-07-06 12:45] LABS: Coronavirus 19, PCR Detected (NotDetected)
== END ==
PROVIDERS: PCP Nurse Practitioner; Visit Provider Nurse Practitioner
DX: U07.1 COVID-19 (principal); R05.9 Cough, unspecified; R06.2 Wheezing
CPT/HCPCS: 36415; 71045; 85007; 85025; 87430; 87581; 87632; 87798; C9803; U0003; U0005

== ENCOUNTER → 2022-05-04 15:26 | Outpatient (CLI) | payer BC, SELFPAY ==
[2022-05-04 18:05] LABS: Basophils # 0.1 K/mm3 (0-0.2); Basophils % 1.4 % (0.1-2.0); Eosinophils # 0.3 K/mm3 (0.0-0.4); Eosinophils % 3.4 % (0.1-12.0); Hematocrit 43.6 % (42.0-52.0); Hemoglobin 13.8 g/dL (14.1-18.0); Lymphocytes # 3.3 K/mm3 (0.7-4.5); Lymphocytes % 39.1 % (10-50); Mean Corpuscular HGB Conc 31.6 g/dL (31.8-35.4); Mean Corpuscular Hemoglobin 29.3 pg (27.0-31.2); Mean Corpuscular Volume 92.9 fl (80-94); Mean Platelet Volume 9.6 fl (7.4-10.4); Monocytes # 4.2 K/mm3 (0.1-1.0); Monocytes % 49.4 % (1.7-9.3); Neutrophils # 0.6 K/mm3 (1.8-7.8); Platelet Count 350 K/mm3 (142-424); Red Blood Count 4.69 M/mm3 (4.60-6.20); Red Cell Distribution Width 14.1 % (11.5-17.5); White Blood Count 8.6 K/mm3 (4.8-10.8)
[2022-05-04 18:09] LABS: Neutrophils % 6.7 % (37.0-80.0)
[2022-05-04 18:11] LABS: MANUAL DIFFERENTIAL MANUAL DIFFERENTIAL (MANUAL DIFF)
[2022-05-04 18:53] LABS: Alanine Aminotransferase 56 U/L (12-78); Albumin Level 4.8 g/dl (3.5-5.0); Albumin/Globulin Ratio 1.7 (1.1-1.8); Alkaline Phosphatase 116 U/L (38-126); Anion Gap 17.1 mEq/L (5-15); Aspartate Amino Transferase 47 U/L (17-59); Bilirubin,Total 0.3 mg/dl (0.2-1.3); Blood Urea Nitrogen 21 mg/dl (9-20); Calcium 9.7 mg/dl (8.4-10.2); Carbon Dioxide 29 mmol/L (22.0-30.0); Chloride 97 mmol/L (98-107); Chol/HDL Ratio 4.9 (1-3.5); Cholesterol 255 mg/dl (140-200); Estimated Glomerular Filt Rate 88 ml/min (>60); GFR (African American) 106 ML/MIN (>60); Globulin 2.8 g/dL (1.3-3.2); Glucose 93 mg/dl (74-100); HDL Cholesterol 52 mg/dl (40-60); Potassium 5.1 mmoL/L (3.5-5.1); Sodium 138 mmol/L (136-145); Total Protein,Serum 7.6 g/dl (6.3-8.2); Triglycerides 135 mg/dl (30-150); VLDL Cholesterol 27 mg/dL (0-40)
[2022-05-04 19:03] LABS: Lymphocytes % 14 % (10-50); Monocytes % 7 % (2-9); Neutrophils % 79 % (42-76); Platelet Estimate Normal; RBC Morphology Normal; Total Cells Counted 100
[2022-05-04 19:04] LABS: Direct LDL Cholesterol 168.87 mg/dL (100-129)
[2022-05-04 19:08] LABS: Free T4 (Free Thyroxine) 0.92 ng/dl (0.78-2.19)
[2022-05-04 19:23] LABS: Thyroid Stimulating Hormone 6.87 uIU/mL (0.465-4.68)
== END ==
PROVIDERS: PCP Nurse Practitioner; Visit Provider Nurse Practitioner
DX: I10 Essential (primary) hypertension (principal); J30.9 Allergic rhinitis, unspecified; E03.9 Hypothyroidism, unspecified; E78.5 Hyperlipidemia, unspecified; F41.8 Other specified anxiety disorders; M51.36 Other intervertebral disc degeneration, lumbar region; R73.01 Impaired fasting glucose
CPT/HCPCS: 80053; 80061; 83036; 84439; 84443; 85007; 85025

== ENCOUNTER → 2022-11-24 07:16 | Outpatient (CLI) | payer BC, SELFPAY ==
[2022-11-24 08:33] LABS: Basophils # 0.1 K/mm3 (0-0.2); Basophils % 1.2 % (0.1-2.0); Eosinophils # 0.4 K/mm3 (0.0-0.4); Eosinophils % 4.1 % (0.1-12.0); Hematocrit 42.2 % (42.0-52.0); Lymphocytes # 3.1 K/mm3 (0.7-4.5); Lymphocytes % 35.3 % (10-50); Mean Corpuscular HGB Conc 33.1 g/dL (31.8-35.4); Mean Corpuscular Hemoglobin 29.7 pg (27.0-31.2); Mean Corpuscular Volume 89.9 fl (80-94); Monocytes # 4.4 K/mm3 (0.1-1.0); Monocytes % 50.7 % (1.7-9.3); Neutrophils # 0.8 K/mm3 (1.8-7.8); Platelet Count 298 K/mm3 (142-424); Red Blood Count 4.69 M/mm3 (4.60-6.20); Red Cell Distribution Width 13.9 % (11.5-17.5); White Blood Count 8.6 K/mm3 (4.8-10.8)
[2022-11-24 08:38] LABS: Neutrophils % 8.7 % (37.0-80.0)
[2022-11-24 08:40] LABS: MANUAL DIFFERENTIAL MANUAL DIFFERENTIAL (MANUAL DIFF)
[2022-11-24 09:42] LABS: Alanine Aminotransferase 40 U/L (12-78); Albumin Level 4.4 g/dl (3.5-5.0); Alkaline Phosphatase 91 U/L (38-126); Anion Gap 16.9 mEq/L (5-15); Aspartate Amino Transferase 32 U/L (17-59); Bilirubin,Indirect 0.2 mg/dL (0.0-0.9); Bilirubin,Total 0.2 mg/dl (0.2-1.3); Bilirubin,Unconjugated 0.3 mg/dL (0.0-1.1); Blood Urea Nitrogen 24 mg/dl (9-20); Calcium 8.8 mg/dl (8.4-10.2); Carbon Dioxide 26 mmol/L (22.0-30.0); Chloride 104 mmol/L (98-107); Chol/HDL Ratio 4.9 (1-3.5); Cholesterol 236 mg/dl (140-200); Estimated Glomerular Filt Rate 100 ml/min (>60); GFR (African American) 121 ML/MIN (>60); Glucose 110 mg/dl (74-100); HDL Cholesterol 48 mg/dl (40-60); Potassium 4.9 mmoL/L (3.5-5.1); Sodium 142 mmol/L (136-145); Total Protein,Serum 7.1 g/dl (6.3-8.2); Triglycerides 116 mg/dl (30-150); VLDL Cholesterol 23 mg/dL (0-40)
[2022-11-24 09:52] LABS: Direct LDL Cholesterol 155.39 mg/dL (100-129)
[2022-11-24 09:58] LABS: Free T4 (Free Thyroxine) 0.76 ng/dl (0.78-2.19)
[2022-11-24 10:12] LABS: Thyroid Stimulating Hormone 8.74 uIU/mL (0.465-4.68)
[2022-11-24 11:04] LABS: Lymphocytes % 17 % (10-50); Monocytes % 5 % (2-9); Neutrophils % 78 % (42-76); Platelet Estimate Normal; RBC Morphology Normal; Total Cells Counted 100
== END ==
PROVIDERS: PCP Nurse Practitioner Family; Visit Provider Physician Assistant
DX: R06.09 Other forms of dyspnea; R07.89 Other chest pain; R42 Dizziness and giddiness; E78.5 Hyperlipidemia, unspecified; I11.9 Hypertensive heart disease without heart failure; I63.9 Cerebral infarction, unspecified; E11.9 Type 2 diabetes mellitus without complications
CPT/HCPCS: 36415; 80048; 80061; 80076; 84439; 84443; 85007; 85025

== ENCOUNTER → 2022-12-15 06:50 | Outpatient (CLI) | payer BC, SELFPAY ==
--- NOTE | 2022-12-15 | CA_ITS ---
APPROVED REPORT Exam: Exercise Treadmill Technologist: Ana Paula Lewis, Ht: 5 ft 8 in Wt: 258 lbs BSA: 2.28 m2 HR: 45 bpm BP: 122/73 mmHg Rhythm: Sinus bradycardia Medical History Medical History: HTN, Hyperlipidemia Medications: Levothyroxine,,,,, Aspirin,,,,, Flonase,,,,, Montelukast,,,,, Sertraline,,,,, Diclofenac Sodium,,,,, Metoprolol Succinate ER,,,,, Ceterizine,,,,, Lisinopril-Hydrochlorothiazide,,,,, Allergies: PENICILLIN Cardiac Risk Factors: HTN, Hyperlipidemia, FHX of CAD Stress Test Details Test: Vasiliy HR Resting HR: 52 bpm Max Heart Rate (APMHR): 165 bpm Max HR Achieved: 140 bpm Target HR (85% APMHR): 140 bpm % of APMHR: 85 Recovery HR: 57 bpm HR response to stress: Normal HR response to stress BP Resting BP: 122.0/73 mmHg Max BP: 200/60 mmHg Recovery BP: 170.0/82.0 mmHg BP response to stress: Abnormal hypertensive response to stress. ECG Resting ECG: Sinus bradycardia, Q waves in inferior leads, nonspecific T wave changes Stress ECG: < 1mm upsloping ST depression Arrhythmia: PACs, PVCs Recovery ECG: Return to baseline within 3 minutes of recovery Recovery Arrhythmia: PVCs Clinical Reason for Termination: DYSPNEA, FATIGUE Exercise duration: 09:39 min Highest Stage Achieved: Exercise capacity: 10.1 METs Overall Exercise Capacity for Age: Good Stress ECG Conclusion MAX HR: 140 % OF PM: 85 MAX B/P: 200/60 METS: 10.1 TEST STOPPED DUE TO: DYSPNEA/FATIGUE THE PATIENT WAS ABLE TO EXERCISE TO 9M 39S, ACHIEVING 10.1 METS. HE HAD GOOD EXERCISE CAPACITY COMPARED TO AGE AND SEX MATCHED PEERS. HE HAD A NORMAL HR BUT AN EXAGGERATED BP RESPONSE TO EXERCISE. AT BASELINE, ECG DEMONSTRATED SINUS BRADYCARDIA WITH Q-WAVES IN INFERIOR LEADS AND NON-SPECIFIC T-WAVE CHANGES IN INFERIOR LEADS. AT PEAK STRESS, ECG DEMONSTRATED < 1MM ST DEPRESSION IN INFEROLATERAL LEADS, WHICH EVENTUALLY RESOLVED WITHIN 3 MINUTES OF RECOVERY. THERE WERE FREQUENT PVCS AND PACS DURING STRESS, AND PVCS PRESENT AT RECOVERY. ECG STRESS TEST DEMONSTRATED POSSIBLE ISCHEMIA AT PEAK STRESS. MYOVIEW IMAGES ARE REPORTED SEPARATELY. Test Summary REST . . . . . . . Standing REST . . . . . . . Sitting REST 04:54 0.0 0.0 52 . 122/ 73 . . Stage 1 01:00 10.0 1.7 72 . . . . Stage 1 02:00 10.0 1.7 81 . . . . Stage 1 03:00 10.0 1.7 83 . 140/ 80 . . Stage 2 01:00 12.0 2.5 94 . . . . Stage 2 02:00 12.0 2.5 98 . . . . Stage 2 03:00 12.0 2.5 95 . 150/ 80 . . Stage 3 01:00 14.0 3.4 112 . . . . Stage 3 02:00 14.0 3.4 118 . . . . Stage 3 . . . . . . . Myoview Injected Stage 3 03:00 14.0 3.4 123 . . . . Stage 4 00:39 16.0 4.2 137 . . . Stop exercise at 09:39 RECOVERY 01:00 0.0 0.0 101 . . . . RECOVERY 02:00 0.0 0.0 73 . 185/ 90 . . RECOVERY 03:00 0.0 0.0 61 . 185/ 90 . . RECOVERY 04:00 0.0 0.0 50 . 200/ 60 . . RECOVERY 05:00 0.0 0.0 48 . 200/ 60 . . RECOVERY 06:00 0.0 0.0 56 . 185/ 80 . . RECOVERY 07:00 0.0 0.0 58 . 185/ 80 . . RECOVERY 08:00 0.0 0.0 55 . 170/ 82 . . RECOVERY 09:00 0.0 0.0 53 . 170/ 82 . . RECOVERY 10:00 0.0 0.0 54 . 170/ 82 . . RECOVERY 11:00 0.0 0.0 55 . 150/ 85 . . RECOVERY 11:03 0.0 0.0 55 . 150/ 85 . . Electronically signed by : Isabelle Quach, 12/18/2022 01:18:38
--- NOTE | 2022-12-15 06:56 | NM_ITS ---
APPROVED REPORT Exam: Nuclear Stress Test Indication: chest pain..soa..palpitations..fatigue..hign BP..High cholesterol..family hx..tobacco user Patient Location: Outpatient Stress Tech: Ana Paula Lewis [place] Tech:Mayi Anders, ARRT RT(R)(N) Ht: 5 ft 8 in Wt: 255 lbs HR: 52 bpm BP: 122/73 mmHg BSA: 2.27 m2 Rhythm: Sinus bradycardia TID: 1.10 BMI: 38.7 History: chest pain..soa..palpitations..fatigue..hign BP..High cholesterol..family hx..tobacco user Procedure: Patient exercised on Vasiliy protocol 9:39 minutes and sec, resting heart rate 52 bpm, resting blood pressure 122/73 mmHg, with exercise maximum heart rate achived was 140 bpm which is 85 % of the maximum predicted heart rate and blood pressure was 200/60 mmHg. Test was stopped due to soa. Patient denied any complaint of chest pain. Patient has Good exercise capacity, achieved 10.1 METs of workload on treadmill, the blood pressure response to exercise was Exaggerated. Cardiac Stress and Resting SPECT Images: Cardiac Stress and Resting SPECT images were obtained using technetium 99m Myoview 32.9 mCi stress and 10.31 mCi at rest. Resting and stress imaging in supine position demonstrate a large sized, moderate, partially reversible perfusion defect in the inferior LV wall. This was no longer visualized in prone stress imaging. Findings are suggestive of diaphragmatic attenuation, but true perfusion defect cannot be entirely ruled out. Gated imaging demonstrates low normal global and regional LV systolic function. LVEF is low normal at 50%. Conclusion: Diaphragmatic attenuation is present. No definite evidence of fixed or reversible perfusion defect Gated imaging demonstrates low normal global and regional LV systolic function. LVEF is low normal at 50%. Electronically signed by : Isabelle Quach, 12/18/2022 01:25:44
== END ==
LOC: RAD 06:52
PROVIDERS: PCP Nurse Practitioner Family; Visit Provider Physician Assistant
DX: R06.09 Other forms of dyspnea (principal); R07.89 Other chest pain; R42 Dizziness and giddiness; I10 Essential (primary) hypertension; E78.5 Hyperlipidemia, unspecified
CPT/HCPCS: 78452; 93017; 93306; A9502

== ENCOUNTER → 2023-02-23 07:39 | Outpatient (CLI) | payer BC, SELFPAY ==
[2023-02-23 08:28] LABS: Hemoglobin A1C 6.4 % (4.0-6.0)
[2023-02-23 10:48] LABS: Alanine Aminotransferase 34 U/L (12-78); Albumin Level 4.3 g/dl (3.5-5.0); Albumin/Globulin Ratio 1.5 (1.1-1.8); Alkaline Phosphatase 96 U/L (38-126); Anion Gap 15.1 mEq/L (5-15); Aspartate Amino Transferase 26 U/L (17-59); Bilirubin,Total 0.2 mg/dl (0.2-1.3); Calcium 9.1 mg/dl (8.4-10.2); Carbon Dioxide 29 mmol/L (22.0-30.0); Chloride 103 mmol/L (98-107); Chol/HDL Ratio 4.1 (1-3.5); Cholesterol 154 mg/dl (140-200); Globulin 2.9 g/dL (1.3-3.2); Glucose 121 mg/dl (74-100); HDL Cholesterol 38 mg/dl (40-60); Potassium 5.1 mmoL/L (3.5-5.1); Sodium 142 mmol/L (136-145); Total Protein,Serum 7.2 g/dl (6.3-8.2); Triglycerides 87 mg/dl (30-150); VLDL Cholesterol 17 mg/dL (0-40)
[2023-02-23 10:52] LABS: Blood Urea Nitrogen 28 mg/dl (9-20)
[2023-02-23 10:53] LABS: Estimated Glomerular Filt Rate 78 ml/min (>60); GFR (African American) 94 ML/MIN (>60)
[2023-02-23 10:59] LABS: Direct LDL Cholesterol 91.18 mg/dL (100-129)
[2023-02-23 11:17] LABS: Prostate Specific Ag Screen 0.6 ng/ml (0.0-4.0); Thyroid Stimulating Hormone 7.91 uIU/mL (0.465-4.68)
== END ==
PROVIDERS: PCP Family Medicine; Visit Provider Family Medicine
DX: E03.9 Hypothyroidism, unspecified (principal); R73.01 Impaired fasting glucose; I10 Essential (primary) hypertension; E78.5 Hyperlipidemia, unspecified; Z12.5 Encounter for screening for malignant neoplasm of prostate
CPT/HCPCS: 36415; 80053; 80061; 83036; 84443; G0103

== ENCOUNTER 2025-05-01 11:51 | Outpatient (CLI) | payer BC, SELFPAY ==
--- OUTSIDE RECORDS SUMMARY | 2024-05-16 10:00 | XMS_ITS ---
Author Organization [facility] Address [address] [place] [phone] Care Team Providers Care [employer] Lead Name Role Phone Brenda Prajapati Primary Care Provider Kervin Dillard Unavailable [phone] Allergies Allergen (clinical drug ingredient) Drug/Non Drug Allergy documented on EMR Reaction Allergy Type Onset Date Status Penicillin unknown Drug Allergy Active Reason For Referral Reason Prefers a Sunday rian t Diagnosis 1 Encounter for vasect chelsey counseling (Z30.09) Referral Organization [facility] Referring Provider First Name Kervin Referring Provider Last Name Nishant Referring Provider Speciality Family Pra ctice Referred Provider Miguel A Rivero Referred Provider Specialty Urology General Notes Lorelei Polk 024 2:52:55 PM > faxed to Dr. Rivero Referral Priority Routine REASON FOR VISIT personal Medications Medication SIG (Take, Route, Frequency, Duration) Notes Start Date End Date Status Sildenafil Citrate 20 MG 1 to 5 tablet O rally Once a day as needed 05/16/2024 Active Levothyroxine Sodium 125 MCG 1 tab(s) Or ally once a day; Duration: 90 days Active Zepbound 7.5 MG/0.5ML 0.5 ml Subcutaneou s weekly; Duration: 30 day(s) 02/13/2024 Active Metoprolol Succinate 25 MG 1 capsule Ora lly Once a day; Duration: 30 day(s) Active Lisinopril-hydroCHLOROthiazi de 20-25 MG Take 1 tablet by mouth once daily; Duration: 90 Active Diclofenac Sodium 75 MG Take 1 tablet by mouth twice daily; Duration: 90 days Active EQ Allergy Relief (Cetirizine) 10 MG Take 1 tablet by mouth once daily; Duration: 90 Active Rosuvastatin Calcium 10 MG Take 1 tablet by mouth once daily; Duration: 90 Active Cyclobenzaprine HCl 10 MG 1 tablet at be dtime as needed Orally tid prn 02/11/2024 Active Medrol 4 MG as directed orally daily; Duration: 6 days 2024 Active Fluticasone Propionate 50 MCG/ACT 1 spray(s) intranasally once a day; Duration: 30 day(s) 11/01/2021 Active Tiesha Allergy 180 MG 1 tablet Swallow whole with water; do not take with fruit juices. Orally Once a day; Duration: 30 day(s) 02/11/2024 Active Sertraline HCl 100 MG TAKE 1 & 1/2 (ONE & ONE-HALF) TABLETS BY MOUTH ONCE DAILY FOR 90 DAYS; Duration: 90 days Active Montelukast Sodium 10 MG 1 tab(s) orally once a day Active Problems Problem Type SNOMED Code ICD Code Onset Dates Problem Status W/U Status Risk Notes Problem Erectile dysfunction (disorder) (428825830) Erectile dysfunction, unspecified erectile dysfunction type (N52.9) Active confirmed Vital Signs Blood pressure systolic 130 mm Hg 05/16/20 24 Blood pressure diastolic 70 mm Hg 024 Heart Rate 91 /min 05/16/2024 Height 67.50 in 05/16/2024 Weight 256.6 lbs 05/16/2024 BMI 39.59 kg/m2 05/16/2024 Encounters Encounter Location Date Provider Diagnosis [facility] [address] [facility] [address] [place] [phone] 05/16/2024 Kervin Dillard Erectile dysfunction , unspecified erectile dysfunction type N52.9 and Encounter for vasectomy counseling Z30.09 Assessments Encounter Date Diagnosis (ICD Code) Assessment Notes Treatment Notes Treatment Clinical Notes Section Notes 05/16/2024 Erectile dysfunction, unspecified erectile dysfunction type (ICD-10 - N52.9) 05/16/2024 Encounter for vasectomy counseling (ICD-10 - Z30.09) Plan Of Treatment Medication Medication Name Sig Start Date Stop Date Notes Sildenafil Citrate 20 MG 1 to 5 tablet O rally Once a day as needed 05/16/2024 Referrals Referral Date Details 05/16/2024 05/16/2024, Prefers a Sunday appt, Miguel A Rivero Next Appt Details Follow Up: via phone to repo rt progress, Reason: Progress Notes * Patrick HAASDOB:[birth year] (60 yo M)Acc No.[id number]:05/16/2024 Progress Notes Patient: Patrick TEIXEIRA Provider: Kwabena Dillard M.D. :1965 A ge:59 Y S ex:Male Date:05/16/2024 Address:[address] [place] [address], [place] [id number] Pcp:Brenda Prajapati Subjective: * Chief Complaints: * 1 . Personal. * HPI: M yoana Reproductive: 59 year old male presents with c/o erectile dysfunction f or 3 months l oses erection. * ROS: D ERMATOLOGY: no R teetee. n o H wilman. G ASTROENTEROLOGY: no N ausea. n o V omiting. U ROLOGY: no D ifficulty urinating. n o B lood in urine. * Medical History: H ypertension, Hypothyroidism, Hyperlipidemia, Allergic rhinitis, Anxiety disorder, Back pain. 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 * Hospitalization/Major Diagno stic Procedure: B [facility] 03/07/2018, [place] - Detox- [facility] 09/2018, [facility] - medications September-October 2018, [facility] - lower back pain 10/28/2020. * Family History: F ather: 73 yrs, COPD, 2 heart attacks. M other: alive 83 yrs, pacemaker, stroke, breast cancer, diabetic, A-fib. 1 brother(s) , 2 sister(s) . 1 daughter(s) . . Pt has 3 adopted sons Mother has cardiac pacemaker. * Social History: C URRENT TOBACCO USE: Yes S moking Status: P atient does NOT smoke, T ype of smokeless tobacco used: c hewing tobacco. C affeine: yes, frequency: soda, tea, coffee. Home smoke detector use: yes. Recreational drug use: Rehab. Alcohol: No. * Medications: T aking Metoprolol Succinate 25 MG Capsule ER 24 Hour Sprinkle 1 capsule Orally Once a day , Taking Levothyroxine Sodium 125 MCG Tablet 1 tab(s) Orally once a day , Taking Montelukast Sodium 10 MG Tablet 1 tab(s) orally once a day , Taking Sertraline HCl 100 MG Tablet TAKE 1 & 1/2 (ONE & ONE-HALF) TABLETS BY MOUTH ONCE DAILY FOR 90 DAYS , Taking Tiesha Allergy 180 MG Tablet 1 tablet Swallow whole with water; do not take with fruit juices. Orally Once a day , Taking Fluticasone Propionate 50 MCG/ACT Suspension 1 spray(s) intranasally once a day , Taking EQ Allergy Relief (Cetirizine) 10 MG Tablet Take 1 tablet by mouth once daily , Taking Diclofenac Sodium 75 MG Tablet Delayed Release Take 1 tablet by mouth twice daily , Taking Medrol 4 MG Tablet Therapy Pack as directed orally daily , Taking Cyclobenzaprine HCl 10 MG Tablet 1 tablet at bedtime as needed Orally tid prn , Taking Rosuvastatin Calcium 10 MG Tablet Take 1 tablet by mouth once daily , Taking Lisinopril-hydroCHLOROthiazide 20-25 MG Tablet Take 1 tablet by mouth once daily , Taking Zepbound 7.5 MG/0.5ML Solution Auto-injector 0.5 ml Subcutaneous weekly , Medication List reviewed and reconciled with the patient * Allergies: P enicillin: unknown. Objective: * Vitals: W t:256.6, Temp:98.0, BP:130/70, HR:91, Nurse:liya, Ht: 67.50, BMI:39.59. * Examination: G eneral Examination: General Appearance: N AD. Assessment: * Assessment: 1. E rectile dysfunction, unspecified erectile dysfunction type - N52.9 (Primary) ?2. E ncounter for vasectomy counseling - Z30. Plan: * Treatment: 2. E ncounter for vasectomy counseling Referral To:Miguel A Rivero U[facility] Reason:Prefers a Sunday appt * Follow Up: v ia phone to report progress * Images: Billing Information: * Visit Code: 90521 Office Visit, Est Pt., Level 3. * Procedure Codes: * Electronic signature of Flores Dillard MD on 05/01/2025 at 11:54 AM EDT Sign off status: Pending * Provider: Kwabena Dillard M.D. Date: 07/16/2023 Generated for Arpit martinez/Byron/Linda on: 11:54 AM EDT History and Physical Notes * HPI (History of Present Illness) Category Sub-Category Detail Notes Category Not es Male Reproductive erectile dysfunction loses erection Examination Category Sub-Category Detail Notes Category Not es General Examination General Appearance: NAD Consultation Request Notes Referral Date Referring Provider Referred Provider Not es 05/16/2024 Kervin Dillard Kevin Prefers a Fr lopez appt
--- OUTSIDE RECORDS SUMMARY | 2024-08-04 06:30 | XMS_ITS ---
Author Organization [facility] Address [address] [facility] [address] [place] [id number] Care Team Providers Care Farm Management Agent Name Role Phone Brenda Prajapati Primary Care Provider [phone] Sherie Del Rosario Unavailable [phone] Allergies Allergen (clinical drug ingredient) Drug/Non Drug Allergy documented on EMR Reaction Allergy Type Onset Date Status Penicillin unknown Drug Allergy Active Results Component Value Reference Range Notes Influenza Screen (in house) Reviewed date:08/04/2024 01:20:54 PM Interpretation:neg Performing Lab: Notes/Report: neg results neg CBC Fingerstick (in house) Reviewed date:08/04/2024 01:20:30 PM Interpretation: Performing Lab: Notes/Report: wbc 11.2 3.5 - 10 lym 18.7% 15 - 50 mid 5.3% 2 - 15 gran 76.0% 35 - 80 rbc 5.18 3.5 - 5.5 hgb 15.3 11.5 - 16.5 hct 45.2 35 - 55 mcv 87.1 75 - 100 mch 29.5 25 - 35 mchc 33.9 31 - 38 plat 246 100 - 400 Covid test (in house) Reviewed date:08/04/2024 01:20:42 PM Interpretation:neg Performing Lab: Notes/Report: neg Result: neg REASON FOR VISIT b/p is high & nausea Medications Medication SIG (Take, Route, Frequency, Duration) Notes Start Date End Date Status Lisinopril-hydroCHLOROthiazi de 20-25 MG Take 1 tablet by mouth once daily; Duration: 90 Active Montelukast Sodium 10 MG 1 tab(s) orally once a day Active Sildenafil Citrate 20 MG 1 to 5 tablet O rally Once a day as needed 05/16/2024 Active Levothyroxine Sodium 125 MCG 1 tab(s) Or ally once a day; Duration: 90 days Active Sertraline HCl 100 MG TAKE 1 & 1/2 (ONE & ONE-HALF) TABLETS BY MOUTH ONCE DAILY FOR 90 DAYS; Duration: 90 days Active Rosuvastatin Calcium 10 MG Take 1 tablet by mouth once daily; Duration: 90 Active Diclofenac Sodium 75 MG Take 1 tablet by mouth twice daily; Duration: 90 days Active Cyclobenzaprine HCl 10 MG 1 tablet at be dtime as needed Orally tid prn 02/11/2024 Active Medrol 4 MG as directed orally daily; Duration: 6 days 2024 Active EQ Allergy Relief (Cetirizine) 10 MG Take 1 tablet by mouth once daily; Duration: 90 Active Tiesha Allergy 180 MG 1 tablet Swallow whole with water; do not take with fruit juices. Orally Once a day; Duration: 30 day(s) 02/11/2024 Active Metoprolol Succinate 25 MG 1 capsule Ora lly Once a day; Duration: 30 day(s) Active Fluticasone Propionate 50 MCG/ACT 1 spray(s) intranasally once a day; Duration: 30 day(s) 11/01/2021 Active Vital Signs Blood pressure systolic 128 mm Hg 08/04/19 25 Blood pressure diastolic 76 mm Hg 025 Heart Rate 66 /min 08/04/2024 Height 67.50 in 08/04/2024 Weight 268.0 lbs 08/04/2024 BMI 41.35 kg/m2 08/04/2024 Encounters Encounter Location Date Provider Diagnosis [facility] [address] [place] [id number] 08/04/2024 Sherie Del Rosario AGE (acute gastroenteritis) K52.9 Assessments Encounter Date Diagnosis (ICD Code) Assessment Notes Treatment Notes Treatment Clinical Notes Section Notes 08/04/2024 AGE (acute gastroenteritis ) (ICD-10 - K52.9) stressed good fluid intake; , bland foods in small amounts with good fluid intake--small amounts frequently; no soda or caffeine Plan Of Treatment Treatment Notes Assessment Notes AGE (acute gastroenteritis) stressed goo d fluid intake; , bland foods in small amounts with good fluid intake--small amounts frequently; no soda or caffeine Next Appt Details Follow Up: prn, Reason: Progress Notes * Patrick HAASDOB:[birth year] (60 yo M)Acc No.[id number]:08/04/2024 Progress Notes Patient: Patrick TEIXEIRA Provider: PRISCILLA Park :1965 A ge:59 Y S ex:Male Date:08/04/2024 Address:[address] [place] [address], [place] [id number] Pcp:Brenda Prajapati Subjective: * Chief Complaints: * 1 . B/p is high & nausea. * HPI: G astroenterology: 59 year old male presents with c/o Nausea. c/o Vomiting?vomitied this AM ; no vomited yesterday. c/o Belching. c/o gas. Denies : Abdominal Pain. D enies : Heartburn. D enies : Fever. D enies : Abdominal Distension. bowels last moved this AM and was norml. C ardiology: c/o Blood Pressure Elevated P t sts he checks his bp at home, and sts that on Sunday night he got very sick and was vomiting and sts he woke up the same way Sunday morning and he checked his bp that afternoon and it was 195/104. Pt sts he was on Zepboud and that i n the middle of May he stopped taking it and sts he took it again on Sunday. Pt wonders if coming off the medication and restarting it could have anything to do with this. E NT/respiratory: c/o Short of Breath. c/o headache. c/o smoking c hews. c/o body aches. Denies : sore throat. D enies : cough. D enies : nasal congestion. D enies : Fever. D enies : ear pain. D enies : rhinorrhea. D enies : chest congestion. * ROS: D ERMATOLOGY: no R teetee. [...] . * Hospitalization/Major Diagno stic Procedure: B [facility] 03/07/2018, [place] - Detox- [facility] 09/2018, [facility]-October 2018, [facility] - lower back pain 10/28/2020. [...] capsule Orally Once a day , Taking Tiesha Allergy 180 MG Tablet [...] tablet by mouth once daily , Taking Lisinopril- hydroCHLOROthiazide 20-25 MG Tablet Take 1 tablet by mouth once daily , Taking Sildenafil Citrate 20 MG Tablet 1 to 5 tablet Orally Once a day as needed , Taking Montelukast Sodium 10 MG Tablet 1 tab(s) orally once a day , Taking Sertraline HCl 100 MG Tablet TAKE 1 & 1/2 (ONE & ONE-HALF) TABLETS BY MOUTH ONCE DAILY FOR 90 DAYS , Taking Levothyroxine Sodium 125 MCG Tablet 1 tab(s) Orally once a day , Medication List reviewed and reconciled with the patient * Allergies: P enicillin: unknown. Objective: * Vitals: W t:268.0, Temp:98.5, BP:128/76, HR:66, O2 Sat:96% on RA, Nurse:ANGELIA, Ht: 67.50, BMI:41.35. * Examination: G eneral Examination: General Appearance: NAD, alert, pleasant. H EENT:? sclera and conjunctiva clear, PERRLA, TM's normal, translucent. O ral cavity: mucosa moist and WNL, no erythema. N jensen: supple, no lymphadenopathy. H eart: RRR. L ungs: CTAB A&P. A bdomen: bowel sounds present, obese, soft, nontender. N eurologic Exam: alert and oriented. Assessment: * Assessment: 1. A GE (acute gastroenteritis) - K52.9 (Primary) Plan: * Treatment: Value Reference Range r esults neg * Kristine Hayes 08/04/2024 11:42: 07 AM > Provider reviewed results while patient in office.Sherie Del Rosario 08/04/2024 1:20:51 PM > ?LAB: Covid test (in house) (Collection Date & Time - 08/04/2024)?neg* Value Reference Range R esult: neg * Kristine Hayes 08/04/2024 11:42: 40 AM > Provider reviewed results while patient in office.Sherie Del Rosario 08/04/2024 1:20:39 PM > Notes: stressed good fluid intake; , bland foods in small amounts with good fluid intake--small amounts frequently; no soda or caffeine?? * Labs: * L ab: CBC Fingerstick (in house) (Collection Date & Time - 08/04/2024) Value Reference Range w bc 11.2 3.5 - 10 * l ym 18.7% 15 - 50 * m id 5.3% 2 - 15 * g ran 76.0% 35 - 80 * r bc 5.18 3.5 - 5.5 * h gb 15.3 11.5 - 16.5 * h ct 45.2 35 - 55 * m cv 87.1 75 - 100 * m ch 29.5 25 - 35 * m chc 33.9 31 - 38 * p lat 246 100 - 400 * Kerri Mathis 08/04/2024 11:18:12 AM > , Provider reviewed results while patient in office.Sherie Del Rosario 08/04/2024 1:20:28 PM > * Procedure Codes: 3 6416 CAPILLARY BLOOD DRAW, 50298 CBC WITH AUTO DIFF, 61377 Flu Test- Nasal Swab, Modifiers: QW , 51382 COVID TEST IN HOUSE, Modifiers: QW , 3074F SYST BP LT 130 MM HG, 3078F DIAST BP < 80 MM HG * Follow Up: p rn * Images: Billing Information: * Visit Code: 00599 Office Visit, Est Pt., Level 3. * Procedure Codes: 68841 CAPILLARY BLOOD DRAW. 18053 CBC WITH AUTO DIFF. 46603 Flu Test- Nasal Swab. Modifiers: QW 12187 COVID TEST IN HOUSE. Modifiers: QW 3074F SYST BP LT 130 MM HG. 3078F DIAST BP < 80 MM HG. * Electronic signature of Romelia yan Carin , MURRAY on 05/01/2025 at 11:55 AM EDT Sign off status: Pending * Provider: PRISCILLA Park Date: 0 08/04/2024 Generated for Arpit martinez/Byron/Linda on: 1 11:55 AM EDT History and Physical Notes * HPI (History of Present Illness) Category Sub-Category Detail Notes Category Not es ENT/respiratory sore throat ear pain Short of Breath cough Fever headache chest congestion rhinorrhea nasal congestion smoking chews body aches Cardiology Blood Pressure Elevated Pt sts h e checks his bp at home, and sts that on Sunday night he got very sick and was vomiting and sts he woke up the same way Sunday morning and he checked his bp that afternoon and it was 195/104. Pt sts he was on Zepboud and that in the middle of May he stopped taking it and sts he took it again on Sunday. Pt wonders if coming off the medication and restarting it could have anything to do with this Gastroenterology Fever bowels last moved this AM and was norml Vomiting vomitied this AM ; n o vomited yesterday Abdominal Pain Nausea Abdominal Distension Heartburn Belching gas Examination Category Sub-Category Detail Notes Category Not es General Examination HEENT: sclera and c onjunctiva clear, PERRLA, TM's normal, translucent Heart: RRR Lungs: CTAB A&P Abdomen: bowel sounds present , obese, soft, nontender General Appearance: NAD, alert, pleasant Neurologic Exam: alert and oriented Neck: supple, no lymphaden opathy Oral cavity: mucosa moist and WNL , no erythema
--- OUTSIDE RECORDS SUMMARY | 2024-11-04 07:00 | XMS_ITS ---
Author Organization [facility] Address [address] [facility] [address] [place] [id number] Care Team Providers Care Drilling Assistant Name Role Phone Brenda Prajapati Primary Care Provider Kervin Dillard Unavailable [phone] Allergies Allergen (clinical drug ingredient) Drug/Non Drug Allergy documented on EMR Reaction Allergy Type Onset Date Status Penicillin unknown Drug Allergy Active Results Component Value Reference Range Notes Influenza Screen (in house) Reviewed date:11/04/2024 01:51:01 PM Interpretation: Performing Lab: Notes/Report: results Neg CBC Fingerstick (in house) Reviewed date:11/04/2024 01:51:08 PM Interpretation: Performing Lab: Notes/Report: wbc 12.1 3.5 - 10 lym 11.6% 15 - 50 mid 4.0% 2 - 15 gran 84.4% 35 - 80 rbc 4.86 3.5 - 5.5 hgb 14.1 11.5 - 16.5 hct 42.3 35 - 55 mcv 87.0 75 - 100 mch 29.1 25 - 35 mchc 33.4 31 - 38 plat 173 100 - 400 REASON FOR VISIT fever,chills,diarrhea Medications Medication SIG (Take, Route, Frequency, Duration) Notes Start Date End Date Status EQ Allergy Relief (Cetirizine) 10 MG Take 1 tablet by mouth once daily; Duration: 90 Active Rosuvastatin Calcium 10 MG Take 1 tablet by mouth once daily; Duration: 90 Active Zithromax Z-Sandeep 250 MG as directed Orall y once daily; Duration: 5 days 11/04/2024 Active Diclofenac Sodium 75 MG Take 1 tablet by mouth twice daily; Duration: 90 Active Lisinopril-hydroCHLOROthiazi de 20-25 MG Take 1 tablet by mouth once daily; Duration: 90 Active Montelukast Sodium 10 MG 1 tab(s) orally once a day Active Sildenafil Citrate 20 MG 1 to 5 tablet O rally Once a day as needed 05/16/2024 Active Cyclobenzaprine HCl 10 MG 1 tablet at be dtime as needed Orally tid prn 02/11/2024 Active Levothyroxine Sodium 125 MCG 1 tab(s) Or ally once a day; Duration: 90 days Active Sertraline HCl 100 MG TAKE 1 & 1/2 (ONE & ONE-HALF) TABLETS BY MOUTH ONCE DAILY FOR 90 DAYS; Duration: 90 days Active Metoprolol Succinate 25 MG 1 capsule Ora lly Once a day; Duration: 30 day(s) Active Fluticasone Propionate 50 MCG/ACT 1 spray(s) intranasally once a day; Duration: 30 day(s) 11/01/2021 Active Tiesha Allergy 180 MG 1 tablet Swallow whole with water; do not take with fruit juices. Orally Once a day; Duration: 30 day(s) 02/11/2024 Active Medrol 4 MG as directed orally daily; Duration: 6 days 2024 Active Vital Signs Blood pressure systolic 154 mm Hg 11/05/19 25 Blood pressure diastolic 82 mm Hg 025 Heart Rate 100 /min 11/04/2024 Height 67.50 in 11/04/2024 Weight 278.6 lbs 11/04/2024 BMI 42.99 kg/m2 11/04/2024 Encounters Encounter Location Date Provider Diagnosis [facility] [address] [facility] [address], [place] [phone] 11/04/2024 Kervin Dillard Acute URI J06.9 Assessments Encounter Date Diagnosis (ICD Code) Assessment Notes Treatment Notes Treatment Clinical Notes Section Notes 11/04/2024 Acute URI (ICD-10 - J06.9) Plan Of Treatment Medication Medication Name Sig Start Date Stop Date Notes Zithromax Z-Sandeep 250 MG as directed Orall y once daily; Duration: 5 days 11/04/2024 Next Appt Details Follow Up: via phone to repo rt progress, Reason: Progress Notes * Jackson HAAS:[birth year] (60 yo M)Acc No.[id number]:11/04/2024 Progress Notes Patient: Patrick TEIXEIRA Provider: Kwabena Dillard M.D. :1965 A ge:59 Y S ex:Male Date:11/04/2024 Address:[address] [place] [address], [place] [address] Pcp:Brenda Prajapati Subjective: * Chief Complaints: * 1 . Fever,chills,diarrhea. * HPI: E NT/respiratory: 59 year old male presents with c/o cough P t complains of dry without any sputum production cough that started last night. Associates with fever, chills, bodyaches, nausea and diarrhea . * ROS: D ERMATOLOGY: no R teetee. n o H wilman. G ASTROENTEROLOGY: no N ausea. n o V omiting. U ROLOGY: no D ifficulty urinating. n o B lood in urine. * Medical History: H ypertension, Hypothyroidism, Hyperlipidemia, Allergic Rhinitis, Anxiety disorder, Back pain. 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 * Hospitalization/Major Diagno stic Procedure: B [facility] 03/07/2018, [place] - Detox- [facility] 09/2018, [facility] - medications September-October 2018, [facility] - lower back pain 10/28/2020. [...] spray(s) intranasally once a day , Taking Medrol 4 MG Tablet Therapy Pack as directed orally daily , Taking Cyclobenzaprine HCl 10 MG Tablet 1 tablet at bedtime as needed Orally tid prn , Taking Sildenafil Citrate 20 MG Tablet 1 to 5 tablet Orally Once a day as needed , Taking Montelukast Sodium 10 MG Tablet 1 tab(s) orally once a day , Taking Sertraline HCl 100 MG Tablet TAKE 1 & 1/2 (ONE & ONE- HALF) TABLETS BY MOUTH ONCE DAILY FOR 90 DAYS , Taking Levothyroxine Sodium 125 MCG Tablet 1 tab(s) Orally once a day , Taking Lisinopril-hydroCHLOROthiazide 20-25 MG Tablet Take 1 tablet by mouth once daily , Taking Diclofenac Sodium 75 MG Tablet Delayed Release Take 1 tablet by mouth twice daily , Taking Rosuvastatin Calcium 10 MG Tablet Take 1 tablet by mouth once daily , Taking EQ Allergy Relief (Cetirizine) 10 MG Tablet Take 1 tablet by mouth once daily , Medication List reviewed and reconciled with the patient * Allergies: P enicillin: unknown. Objective: * Vitals: W t: 278.6, Temp: 98.2, BP: 154/82, HR: 100, O2 Sat: 93% on RA, Nurse: liya, Ht: 67.50, BMI:42.99. * Examination: E NT/Respiratory: General Appearance: N AD. O ral cavity : e rythema without exudate on pharynx. H eart : R RR. L ungs: c lear to auscultation bilaterally. Assessment: * Assessment: 1. Martin bartlett URI - J06.9 (Primary) Plan: * Treatment: Value Reference Range r esults Neg * Kerri Mathis 11/04/2024 11:21:3 7 AM > Provider reviewed results while patient in office. ?LAB: CBC Fingerstick (in house) (Collection Date & Time - 11/04/2024)* Value Reference Range w bc 12.1 3.5 - 10 * l ym 11.6% 15 - 50 * m id 4.0% 2 - 15 * g ran 84.4% 35 - 80 * r bc 4.86 3.5 - 5.5 * h gb 14.1 11.5 - 16.5 * h ct 42.3 35 - 55 * m cv 87.0 75 - 100 * m ch 29.1 25 - 35 * m chc 33.4 31 - 38 * p lat 173 100 - 400 * Kerri Mathis 11/04/2024 11:23:0 5 AM > Provider reviewed results while patient in office. * Procedure Codes: 8 7804 Flu Test- Nasal Swab, Modifiers: QW , 60641 CAPILLARY BLOOD DRAW, 28258 CBC WITH AUTO DIFF * Follow Up: v ia phone to report progress * Images: Billing Information: * Visit Code: 54371 Office Visit, Est Pt., Level 3. * Procedure Codes: 82821 Flu Test- Nasal Swab. Modifiers: QW 46356 CAPILLARY BLOOD DRAW. 70428 CBC WITH AUTO DIFF. * Electronic signature of Flores Dillard MD on 05/01/2025 at 11:55 AM EDT Sign off status: Pending * Provider: Kwabena Dillard M.D. Date: 0 11/04/2024 Generated for Arpit martinez/Byron/eTransmitting on: 1 11:55 AM EDT History and Physical Notes * HPI (History of Present Illness) Category Sub-Category Detail Notes Category Not es ENT/respiratory cough Pt complains of dry without any sputum production cough that started last night. Associates with fever, chills, bodyaches, nausea and diarrhea Examination Category Sub-Category Detail Notes Category Not es ENT/Respiratory Oral cavity : erythema without exudate on pharynx Heart : RRR Lungs: clear to auscultatio n bilaterally General Appearance: NAD
--- OUTSIDE RECORDS SUMMARY | 2024-12-08 12:30 | XMS_ITS ---
Author Organization [facility] Address [address] [facility] [address] [place] [id number] Care Team Providers Care Highway Engineering Technician Name Role Phone Brenda Prajapati Primary Care Provider [phone] Nishant Kervin Unavailable [phone] Allergies Allergen (clinical drug ingredient) Drug/Non Drug Allergy documented on EMR Reaction Allergy Type Onset Date Status Penicillin unknown Drug Allergy Active Results Component Value Reference Range Notes Glycohemoglobin A1c (in hous e) Reviewed date:12/10/2024 09:59:43 AM Interpretation:6.4 Performing Lab: Notes/Report: 6.4 glycohemoglobin 6.4% 5 - 6.5 % P-Comprehensive Metabolic Pa shell (CMP) Reviewed date:12/10/2024 09:59:43 AM Interpretation:gluc 135, alt 63 Performing Lab: Notes/Report: Test performed by [email or web address], [facility] [employer] , [address], [place] [address] Zeyad Albright MD, Trigonometry Tutor CLIA: [id number] Sodium 139 135-145 mmol/L Potassium 3.6 3.5-5.3 mmol/L Chloride 101 97-108 mmol/L CO2 25 22-32 mmol/L Glucose 135 65-99 mg/dL BUN 11 6-20 mg/dL Creatinine 1.00 0.70-1.30 mg/dL Calcium 9.3 8.6-10.4 mg/dL eGFR by Creatinine 87 >59 mL/min/1.73m2 Protein 7.2 6.0-8.3 g/dL Albumin 4.5 3.5-5.3 g/dL Alkaline Phosphatase 116 40-129 IU/L ALT (SGPT) 63 <5-55 IU/L AST (SGOT) 34 <5-46 IU/L Bilirubin, Total 0.2 <0.2-1.2 mg/dL A/G Ratio 1.7 1.1-2.5 P-T4 Free (thyroxine) Reviewed date:12/10/2024 09:59:43 AM Interpretation:Normal Performing Lab: Notes/Report: Test performed by [facility] [address] [place] [address] , [facility] [place] [address] Zeyad Albright MD, Trigonometry Tutor CLIA: [id number] Thyroxine Free (free T4) 1.09 0.86-1.76 ng/dL P-Lipid Panel Reviewed date:12/10/2024 09:59:43 AM Interpretation:Normal Performing Lab: Notes/Report: Test performed by [facility] [address] [place] [address] , [place] [address] Zeyad Albright MD, Trigonometry Tutor CLIA: [id number] Cholesterol 156 <200 mg/dL Triglycerides 87 <150 mg/dL HDL Cholesterol 47 >39 mg/dL Cholesterol / HDL Ratio 3.32 0.00-4.99 Ratio Non-HDL Cholesterol 109 <130 mg/dL LDL Cholesterol (Calculation) 92 <130 mg/dL LDL Cholesterol Levels* Less than 100 mg/dL Optimal 100 to 129 mg/dL Near Optimal/ Above Optimal 130 to 159 mg/dL Borderline High 160 to 189 mg/dL High 190 mg/dL and above Very High * Categories as recommended by the 2004 ATPIII guidelines LDL/HDL Ratio 1.9 <3.3 Ratio LDL Cholesterol Patient History Test Date: 12/08/2024 LDL Results: 92 Units: mg/dL % Change: - P-TSH Reviewed date:12/10/2024 09:59:43 AM Interpretation:6.27 Performing Lab: Notes/Report: Test performed by [facility] [address] [place] [address] , [address], [place] [address] Zeyad Albright MD, Trigonometry Tutor CLIA: [id number] TSH 6.27 0.43-5.25 mU/L P-Microalbumin/Creatinine, R andom Urine Sample Reviewed date:12/10/2024 09:59:43 AM Interpretation:Normal Performing Lab: Notes/Report: Test performed by [facility] [address] [place] [address] , [address], [place] [address] Zeyad Albright MD, Trigonometry Tutor CLIA: [id number] Albumin/Creatinine Ratio, Urine <10.45 0-30 ug/m g Microalbumin, Urine, Random <0.3 Creatinine, Urine 28.7 REASON FOR VISIT Check up and anxiety Medications Medication SIG (Take, Route, Frequency, Duration) Notes Start Date End Date Status Fluticasone Propionate 50 MCG/ACT 1 spray(s) intranasally once a day; Duration: 30 day(s) 11/01/2021 Active DULoxetine HCl 60 MG 1 capsule Orally On ce a day; Duration: 30 days 12/08/2024 Active Irbesartan-hydroCHLOROthiazi de 300-12.5 MG 1 tablet Orally Once a day; Duration: 30 days 12/08/2024 Active Montelukast Sodium 10 MG Take 1 tablet b y mouth once daily; Duration: 90 Active EQ Allergy Relief (Cetirizine) 10 MG Take 1 tablet by mouth once daily; Duration: 90 Active Rosuvastatin Calcium 10 MG Take 1 tablet by mouth once daily; Duration: 90 Active Diclofenac Sodium 75 MG Take 1 tablet by mouth twice daily; Duration: 90 Active Levothyroxine Sodium 125 MCG 1 tab(s) Or ally once a day; Duration: 90 days Active Sildenafil Citrate 20 MG 1 to 5 tablet O rally Once a day as needed 05/16/2024 Active Cyclobenzaprine HCl 10 MG 1 tablet at be dtime as needed Orally tid prn 02/11/2024 Active Vital Signs Blood pressure systolic 150 mm Hg 12/09/19 25 Blood pressure diastolic 90 mm Hg 025 Heart Rate 71 /min 12/08/2024 Height 67.50 in 12/08/2024 Weight 273.6 lbs 12/08/2024 BMI 42.21 kg/m2 12/08/2024 Encounters Encounter Location Date Provider Diagnosis [facility] [address] [place], [place] [id number] 12/08/2024 Kervin Dillard Essential (primary) hypertension I10 ; Dyslipidemia E78.5 ; Acquired hypothyroidism E03.9 ; Anxiety with depression F41.8 ; Impaired fasting glucose R73.01 and Allergic rhinitis, unspecified seasonality, unspecified trigger J30.9 Assessments Encounter Date Diagnosis (ICD Code) Assessment Notes Treatment Notes Treatment Clinical Notes Section Notes 12/08/2024 Essential (primary) hypertension (ICD-10 - I10) 12/08/2024 Dyslipidemia (ICD-10 - E78.5) 12/08/2024 Acquired hypothyroidism (ICD-10 - E03.9) 12/08/2024 Anxiety with depression (ICD-10 - F41.8) 12/08/2024 Impaired fasting glucose (ICD-10 - R73.01) 12/08/2024 Allergic rhinitis, unspecified seasonality, unspecified trigger (ICD-10 - J30.9) Plan Of Treatment Medication Medication Name Sig Start Date Stop Date Notes DULoxetine HCl 60 MG 1 capsule Orally On ce a day; Duration: 30 days 12/08/2024 Irbesartan-hydroCHLOROthiazi de 300-12.5 MG 1 tablet Orally Once a day; Duration: 30 days 12/08/2024 Lisinopril-hydroCHLOROthiazi de 20-25 MG Take 1 tablet by mouth once daily Sertraline HCl 100 MG TAKE 1 & 1/2 (ONE & ONE-HALF) TABLETS BY MOUTH ONCE DAILY Next Appt Details Follow Up: 3 or 4 Weeks, Xochitl son: Progress Notes * Jackson HAAS:[birth year] (60 yo M)Acc No.[id number]:12/08/2024 Progress Notes Patient: Patrick TEIXEIRA Provider: Kwabena Dillard M.D. :1965 A ge:59 Y S ex:Male Date:12/08/2024 Address:[address] [place] [address], [place] [address] Pcp:Brenda Prajapati Subjective: * Chief Complaints: * 1 . Check up and anxiety. * HPI: P sychology: 59 year old male presents with c/o Anxiety P t complains of feeling shaky all the time . Pt states everything annoys him and he gets overwhelmed easily. Pt is currently taking Sertraline and states it is not helping . C ardiology: c/o Blood Pressure Elevated P t here to f/u on hypertension. c/o Hyperlipidemia P t is fasting today. E ndocrinology: c/o Hypothyroidism P t here to f/u . * ROS: D ERMATOLOGY: no R [...] caught in a machine at work 06/2015, LT Knee , Appendectomy , Sinus . * Hospitalization/Major Diagno stic Procedure: B [facility] 03/07/2018, [place] [facility]2018[facility], [facility] - lower back pain 10/28/2020. [...] Rehab. Alcohol: No. * Medications: T aking Fluticasone Propionate 50 MCG/ACT Suspension 1 spray(s) intranasally once a day , Taking Cyclobenzaprine HCl 10 MG Tablet 1 tablet at bedtime as needed Orally tid prn , Taking Sildenafil Citrate 20 MG Tablet 1 to 5 tablet Orally Once a day as needed , Taking Levothyroxine Sodium 125 MCG Tablet 1 tab(s) Orally once a day , Taking Diclofenac Sodium 75 MG Tablet Delayed Release Take 1 tablet by mouth twice daily , Taking Rosuvastatin Calcium 10 MG Tablet Take 1 tablet by mouth once daily , Taking EQ Allergy Relief (Cetirizine) 10 MG Tablet Take 1 tablet by mouth once daily , Taking Lisinopril-hydroCHLOROthiazide 20-25 MG Tablet Take 1 tablet by mouth once daily , Taking Montelukast Sodium 10 MG Tablet Take 1 tablet by mouth once daily , Taking Sertraline HCl 100 MG Tablet TAKE 1 & 1/2 (ONE & ONE-HALF) TABLETS BY MOUTH ONCE DAILY , Discontinued Metoprolol Succinate 25 MG Capsule ER 24 Hour Sprinkle 1 capsule Orally Once a day , Discontinued Tiesha Allergy 180 MG Tablet 1 tablet Swallow whole with water; do not take with fruit juices. Orally Once a day , Discontinued Medrol 4 MG Tablet Therapy Pack as directed orally daily , Discontinued Zithromax Z-Sandeep 250 MG Tablet as directed Orally once daily , Medication List reviewed and reconciled with the patient * Allergies: P enicillin: unknown. Objective: * Vitals: W t: 273.6, Temp: 97.8, BP: 150/90, HR: 71, Nurse: liya, Ht: 67.50, BMI:42.21. * Examination: G eneral Examination: Heart: R SR. L ungs: c lear to auscultation. P eripheral pulses: n ormal (2+) bilaterally. E xtremities: n o leg edema. ? P sychology: General Appearance: N AD. G rooming : a dequate.?Eye contact : n ormal. M ood : p leasant. Assessment: * Assessment: 1. E ssential (primary) hypertension - I10 (Primary) 2 . D yslipidemia - E78.5 3 . A cquired hypothyroidism - E03.9 4 . A nxiety with depression - F41.8 5 . I mpaired fasting glucose - R73.01 6 . Allergic rhinitis, unspecified seasonality, unspecified trigger - J30.9 Plan: * Treatment: Value Reference Range A /G Ratio 1.7 1.1-2.5 - * A lbumin 4.5 3.5-5.3 - g/dL * A lkaline Phosphatase 116 40-129 - IU/L * A LT (SGPT) 63 H <5-55 - IU/L * A ST (SGOT) 34 <5-46 - IU/L * B ilirubin, Total 0.2 <0.2-1.2 - mg/dL * B UN 11 6-20 - mg/dL * C alcium 9.3 8.6-10.4 - mg/dL * C hloride 101 97-108 - mmol/L * C O2 25 22-32 - mmol/L * C reatinine 1.00 0.70-1.30 - mg/dL * G lucose 135 H 65-99 - mg/dL * P otassium 3.6 3.5-5.3 - mmol/L * S odium 139 135-145 - mmol/L * P rotein 7.2 6.0-8.3 - g/dL * e GFR by Creatinine 87 >59 - mL/min/1.73m2 * Yesenia Palacios 12/10/2024 09:5 9:35 AM EDT > See phone encounter ?LAB: P-Microalbumin/Creatinine, Random Urine Sample (Collection Date & Time - 12/08/2024 03:45 PM)?Normal* Value Reference Range A lbumin/Creatinine Ratio, Urine <10.45 0-30 - ug /mg * C reatinine, Urine 28.7 - mg/dL * M icroalbumin, Urine, Random <0.3 - mg/dL * Yesenia Palacios 12/10/2024 09:5 9:35 AM EDT > See phone encounter 2.?Dyslipidemia?LAB: P-Comprehensive Metabolic Panel (CMP) (Collection Date & Time - 12/08/2024 03:45 PM)?gluc 135, alt 63* Value Reference Range A /G Ratio 1.7 1.1-2.5 - * A lbumin 4.5 3.5-5.3 - g/dL * A lkaline Phosphatase 116 40-129 - IU/L * A LT (SGPT) 63 H <5-55 - IU/L * A ST (SGOT) 34 <5-46 - IU/L * B ilirubin, Total 0.2 <0.2-1.2 - mg/dL * B UN 11 6-20 - mg/dL * C alcium 9.3 8.6-10.4 - mg/dL * C hloride 101 97-108 - mmol/L * C O2 25 22-32 - mmol/L * C reatinine 1.00 0.70-1.30 - mg/dL * G lucose 135 H 65-99 - mg/dL * P otassium 3.6 3.5-5.3 - mmol/L * S odium 139 135-145 - mmol/L * P rotein 7.2 6.0-8.3 - g/dL * e GFR by Creatinine 87 >59 - mL/min/1.73m2 * Yesenia Palacios 12/10/2024 09:5 9:35 AM EDT > See phone encounter ?LAB: P-Lipid Panel (Collection Date & Time - 12/08/2024 03:45 PM)?Normal* Value Reference Range C holesterol / HDL Ratio 3.32 0.00-4.99 - Ratio * C holesterol 156 <200 - mg/dL * H DL Cholesterol 47 >39 - mg/dL * L DL Cholesterol (Calculation) 92 <130 - mg/d L * L DL/HDL Ratio 1.9 <3.3 - Ratio * N on-HDL Cholesterol 109 <130 - mg/dL * T riglycerides 87 <150 - mg/dL * Yesenia Palacios 12/10/2024 09:5 9:35 AM EDT > See phone encounter 3.?Acquired hypothyroidism?LAB: P-T4 Free (thyroxine) (Collection Date & Time - 12/08/2024 03:45 PM)? Normal* Value Reference Range T hyroxine Free (free T4) 1.09 0.86-1.76 - ng/d L * Yesenia Palacios 12/10/2024 09:5 9:35 AM EDT > See phone encounter ?LAB: P-TSH (Collection Date & Time - 12/08/2024 03:45 PM)?6.27* Value Reference Range T SH 6.27 H 0.43-5.25 - mU/L * Yesenia Palacios 12/10/2024 09:5 9:35 AM EDT > See phone encounter 4.?Anxiety with depression? Stop Sertraline HCl Tablet, 100 MG, TAKE 1 & 1/2 (ONE & ONE-HALF) TABLETS BY MOUTH ONCE DAILY;?Start DULoxetine HCl Capsule Delayed Release Particles, 60 MG, 1 capsule, Orally, Once a day, 30 days, 30, Refills 0.??5.?Impaired fasting glucose?LAB: Glycohemoglobin A1c (in house) (Collection Date & Time - 12/08/2024)? 6.4* Value Reference Range g lycohemoglobin 6.4% 5 - 6.5 % * DelKerri 12/08/2024 05:16:1 6 PM EDT > Yesenia Palacios 12/10/2024 09:59:35 AM EDT > See phone encounter * Procedure Codes: 8 3036 GLYCATED HEMOGLOBIN TEST, Modifiers: QW , 3044F HG A1C LEVEL LT 7.0%, 1036F TOBACCO NON-USER, G8950 PREHTN/HTN BP DOC INDCD F/U DOC, G8753 MOST RECENT SYSTOLIC BP >= 140MM HG, G8755 MOST RECENT DIASTOLIC BP >= 90MM HG * Follow Up: 3 or 4 Weeks * Images: Billing Information: * Visit Code: 32255 Office Visit, Est Pt., Level 4. * Procedure Codes: 31840 GLYCATED HEMOGLOBIN TEST. Modifiers: QW 3044F HG A1C LEVEL LT 7.0%. 1036F TOBACCO NON-USER. G8950 PREHTN/HTN BP DOC INDCD F/U DOC. G8753 MOST RECENT SYSTOLIC BP >= 140MM HG. G8755 MOST RECENT DIASTOLIC BP >= 90MM HG. * Electronic signature of Flores Dillard MD on 05/01/2025 at 11:54 AM EDT Sign off status: Pending * Provider: Kwabena Dillard M.D. Date: 0 12/08/2024 Generated for Arpit martinez/Byron/Linda on: 1 11:54 AM EDT History and Physical Notes * HPI (History of Present Illness) Category Sub-Category Detail Notes Category Not es Endocrinology Hypothyroidism Pt here to f/u Cardiology Blood Pressure Elevated Pt here to f/u on hypertension Hyperlipidemia Pt is fasting today Psychology Anxiety Pt complains of feeling shaky all the time . Pt states everything annoys him and he gets overwhelmed easily. Pt is currently taking Sertraline and states it is not helping Examination Category Sub-Category Detail Notes Category Not es General Examination Heart: RSR Lungs: clear to auscultatio n Extremities: no leg edema Peripheral pulses: normal (2+) bilatera lly Psychology General Appearance: NAD Grooming : adequate Eye contact : normal Mood : pleasant
--- OUTSIDE RECORDS SUMMARY | 2024-12-26 06:15 | XMS_ITS ---
Author Organization [facility] Address [address] [facility] [address] [place] [phone] Care Team Providers Care Refrigerating Technician Name Role Phone Brenda Prajapati Primary Care Provider [phone] Kervin Dillard Unavailable [phone] Allergies Allergen (clinical drug ingredient) Drug/Non Drug Allergy documented on EMR Reaction Allergy Type Onset Date Status Penicillin unknown Drug Allergy Active REASON FOR VISIT 3 week F/U Medications Medication SIG (Take, Route, Frequency, Duration) Notes Start Date End Date Status Montelukast Sodium 10 MG Take 1 tablet b y mouth once daily; Duration: 90 Active Levothyroxine Sodium 150 MCG 1 tablet in the morning on an empty stomach Orally Once a day; Duration: 90 days 12/11/2024 Active DULoxetine HCl 60 MG 1 capsule Orally On ce a day; Duration: 90 days 12/08/2024 Active Rosuvastatin Calcium 10 MG Take 1 tablet by mouth once daily; Duration: 90 Active EQ Allergy Relief (Cetirizine) 10 MG Take 1 tablet by mouth once daily; Duration: 90 Active Irbesartan-hydroCHLOROthiazi de 300-12.5 MG 1 tablet Orally Once a day; Duration: 90 days 12/08/2024 Active Fluticasone Propionate 50 MCG/ACT 1 spray(s) intranasally once a day; Duration: 30 day(s) 11/01/2021 Active Sildenafil Citrate 20 MG 1 to 5 tablet O rally Once a day as needed 05/16/2024 Active Cyclobenzaprine HCl 10 MG 1 tablet at be dtime as needed Orally tid prn 02/11/2024 Active Diclofenac Sodium 75 MG Take 1 tablet by mouth twice daily; Duration: 90 Active Vital Signs Blood pressure systolic 142 mm Hg 12/27/19 25 Blood pressure diastolic 74 mm Hg 025 Heart Rate 70 /min 12/26/2024 Height 67.50 in 12/26/2024 Weight 274 lbs 12/26/2024 BMI 42.28 kg/m2 12/26/2024 Encounters Encounter Location Date Provider Diagnosis [facility] [address] [place], [place] [id number] 12/26/2024 Kervin Dillard Essential (primary) hypertension I10 and Anxiety with depression F41.8 Assessments Encounter Date Diagnosis (ICD Code) Assessment Notes Treatment Notes Treatment Clinical Notes Section Notes 12/26/2024 Essential (primary) hypertension (ICD-10 - I10) Much better control today 12/26/2024 Anxiety with depression (ICD-10 - F41.8) Plan Of Treatment Medication Medication Name Sig Start Date Stop Date Notes DULoxetine HCl 60 MG 1 capsule Orally On ce a day; Duration: 90 days 12/08/2024 Irbesartan-hydroCHLOROthiazi de 300-12.5 MG 1 tablet Orally Once a day; Duration: 90 days 12/08/2024 Treatment Notes Assessment Notes Essential (primary) hypertension Much be tter control today Next Appt Details Follow Up: 5 Months fasting, Reason: Progress Notes * Patrick HAASDOB:[birth year] (60 yo M)Acc No.[id number]:12/26/2024 Progress Notes Patient: Patrick TEIXEIRA Provider: Kwabena Dillard M.D. :1965 A ge:59 Y S ex:Male Date:12/26/2024 Address:[address] [place] [address], [facility] Pcp:Brenda Prajapati Subjective: * Chief Complaints: * 1 . 3 week F/U. * HPI: C ardiology: 59 year old male presents with c/o Blood Pressure Elevated P t here for 3 week f/u on hypertension. Pt stopped Lisinopril/HCTZ and started on Irbesartan/HCTZ on 12/08. BP and improved since starting new medication. * ROS: D ERMATOLOGY: no R teetee. n o H wilman. G ASTROENTEROLOGY: no N ausea. n o V omiting. U ROLOGY: no D ifficulty urinating. n o B lood in urine. * Medical History: H ypertension, Hypothyroidism, Hyperlipidemia, Allergic Rhinitis, Anxiety disorder, Back pain, Lumbar Disc Disease, Lumbar facet arthropathy. 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 * Hospitalization/Major Diagno stic Procedure: B [facility] 03/07/2018, [place] - Det[place]- [facility] 09/2018, [facility] - medications September-October 2018, [facility] ER - lower back pain [...] Once a day as needed , Taking Diclofenac Sodium 75 MG Tablet Delayed Release Take 1 tablet by mouth twice daily , Taking EQ Allergy Relief (Cetirizine) 10 MG Tablet Take 1 tablet by mouth once daily , Taking Montelukast Sodium 10 MG Tablet Take 1 tablet by mouth once daily , Taking Irbesartan-hydroCHLOROthiazide 300-12.5 MG Tablet 1 tablet Orally Once a day , Taking DULoxetine HCl 60 MG Capsule Delayed Release Particles 1 capsule Orally Once a day , Taking Levothyroxine Sodium 150 MCG Tablet 1 tablet in the morning on an empty stomach Orally Once a day , Taking Rosuvastatin Calcium 10 MG Tablet Take 1 tablet by mouth once daily , Medication List reviewed and reconciled with the patient * Allergies: P enicillin: unknown. Objective: * Vitals: W t: 274, Temp: 98.0, BP: 142/74, HR: 70, Nurse: liya, Ht: 67.50, BMI:42.28. * Examination: G eneral Examination: General Appearance: N AD. H eart: R SR. L ungs:?clear to auscultation. Assessment: * Assessment: 1. E ssential (primary) hypertension - I10 (Primary) 2 . A nxiety with depression - F41.8 Plan: * Treatment: 2. A nxiety with depression Refill DULoxetine HCl Capsule Delayed Release Particles, 60 MG, 1 capsule, Orally, Once a day, 90 days, 90, Refills 1. * Follow Up: 5 Months fasting * Images: Billing Information: * Visit Code: 17600 Office Visit, Est Pt., Level 3. * Procedure Codes: * Electronic signature of Flores Dillard MD on 05/01/2025 at 11:54 AM EDT Sign off status: Pending * Provider: Kwabena Dillard M.D. Date: 0 12/26/2024 Generated for Arpit martinez/Byron/Linda on: 1 11:54 AM EDT History and Physical Notes * HPI (History of Present Illness) Category Sub-Category Detail Notes Category Not es Cardiology Blood Pressure Elevated Pt here for 3 week f/u on hypertension. Pt stopped Lisinopril/HCTZ and started on Irbesartan/HCTZ on 12/08. BP and improved since starting new medication Examination Category Sub-Category Detail Notes Category Not es General Examination Heart: RSR Lungs: clear to auscultatio n General Appearance: NAD
--- OUTSIDE RECORDS SUMMARY | 2025-01-19 11:45 | XMS_ITS ---
[facility] Address [address] [facility] [address] [place] [id number] Care Team Providers Care City Treasurer Name Role Phone Brenda Prajapati Primary Care Provider Kervin Dillard Unavailable [phone] Allergies Allergen (clinical drug ingredient) Drug/Non Drug Allergy documented on EMR Reaction Allergy Type Onset Date Status Penicillin unknown Drug Allergy Active REASON FOR VISIT swollen legs Medications Medication SIG (Take, Route, Frequency, Duration) Notes Start Date End Date Status Diclofenac Sodium 75 MG Take 1 tablet by mouth twice daily; Duration: 90 Active Furosemide 20 MG 1 tablet Orally Once a day; Duration: 15 days 01/19/2025 Active Fluticasone Propionate 50 MCG/ACT 1 spray(s) intranasally once a day; Duration: 30 day(s) 11/01/2021 Active Sildenafil Citrate 20 MG 1 to 5 tablet O rally Once a day as needed 05/16/2024 Active Cyclobenzaprine HCl 10 MG 1 tablet at be dtime as needed Orally tid prn 02/11/2024 Active Rosuvastatin Calcium 10 MG Take 1 tablet by mouth once daily; Duration: 90 Active DULoxetine HCl 60 MG 1 capsule Orally On ce a day; Duration: 90 days 12/08/2024 Active Irbesartan-hydroCHLOROthiazi de 300-12.5 MG 1 tablet Orally Once a day; Duration: 90 days 12/08/2024 Active Levothyroxine Sodium 150 MCG 1 tablet in the morning on an empty stomach Orally Once a day; Duration: 90 days Active EQ Allergy Relief (Cetirizine) 10 MG Take 1 tablet by mouth once daily; Duration: 90 Active Montelukast Sodium 10 MG Take 1 tablet b y mouth once daily; Duration: 90 Active Vital Signs Blood pressure systolic 126 mm Hg 01/20/20 25 Blood pressure diastolic 74 mm Hg 025 Heart Rate 72 /min 01/19/2025 Height 67.50 in 01/19/2025 Weight 280.6 lbs 01/19/2025 BMI 43.29 kg/m2 01/19/2025 Encounters Encounter Location Date Provider Diagnosis [facility] [address] [place] [id number] 01/19/2025 Kervin Dillard Peripheral edema R60 .0 Assessments Encounter Date Diagnosis (ICD Code) Assessment Notes Treatment Notes Treatment Clinical Notes Section Notes 01/19/2025 Peripheral edema (ICD-10 - R60.0) Plan Of Treatment Medication Medication Name Sig Start Date Stop Date Notes Furosemide 20 MG 1 tablet Orally Once a day; Duration: 15 days 01/19/2025 Next Appt Details Follow Up: 2 Weeks, Reason: Progress Notes * Patrick HAASDOB:[birth year] (60 yo M)Acc No.[id number]:01/19/2025 Progress Notes Patient: Patrick TEIXEIRA Provider: Kwabena Dillard M.D. :1965 A ge:59 Y S ex:Male Date:01/19/2025 Address:[address] [place] [address], [facility] Pcp:Brenda Prajapati Subjective: * Chief Complaints: * 1 . Swollen legs. * HPI: D ermatology: 59 year old male presents with c/o Swelling P t complains of swelling in both feet for about a week . * ROS: R ESPIRATORY: no C hest congestion. n o C ough. G ASTROENTEROLOGY: no N ausea. n o V omiting. U ROLOGY: no D ifficulty urinating. n o B lood in urine. * Medical History: H ypertension, Hypothyroidism, Hyperlipidemia, Allergic Rhinitis, Anxiety disorder, Back pain, Lumbar Disc Disease, Lumbar facet arthropathy. * Surgical History: A mputation of 3 fingers of left hand due to hand getting caught in a machine at work 06/2015, LT Knee , Appendectomy , Sinus . * Hospitalization/Major Diagno stic Procedure: B [facility] 03/07/2018, [place] [facility] - Detox- [facility] 09/2018, [facility] [place] [facility] - medications September-October 2018, [facility] - lower back pain 10/28/2020. * [...] tablet by mouth twice daily , Taking Montelukast Sodium 10 MG Tablet Take 1 tablet by mouth once daily , Taking Rosuvastatin Calcium 10 MG Tablet Take 1 tablet by mouth once daily , Taking Irbesartan-hydroCHLOROthiazide 300-12.5 MG Tablet 1 tablet Orally Once a day , Taking DULoxetine HCl 60 MG Capsule Delayed Release Particles 1 capsule Orally Once a day , Taking EQ Allergy Relief (Cetirizine) 10 MG Tablet Take 1 tablet by mouth once daily , Taking Levothyroxine Sodium 150 MCG Tablet 1 tablet in the morning on an empty stomach Orally Once a day , Medication List reviewed and reconciled with the patient * Allergies: P enicillin: unknown. Objective: * Vitals: W t: 280.6, Temp: 000, BP: 126/74, HR: 72, Nurse: pe, Ht: 67.50, BMI:43.29. * Examination: G eneral Examination: General Appearance: N AD. H eart: R SR. L ungs:?clear to auscultation. E xtremities: b ilateral trace pitting leg edema. ? Assessment: * Assessment: 1. P eripheral edema - R60.0 (Primary) Plan: * Treatment: * Procedure Codes: 1 036F TOBACCO NON-USER, 3074F SYST BP LT 130 MM HG, 3078F DIAST BP < 80 MM HG * Follow Up: 2 Weeks * Images: Billing Information: * Visit Code: 47422 Office Visit, Est Pt., Level 3. * Procedure Codes: 1036F TOBACCO NON-USER. 3074F SYST BP LT 130 MM HG. 3078F DIAST BP < 80 MM HG. * Electronic signature of Flores Dillard MD on 05/01/2025 at 11:54 AM EDT Sign off status: Pending * Provider: Kwabena Dillard M.D. Date: 0 01/19/2025 Generated for Arpit martinez/Byron/eTransmitting on: 1 11:54 AM EDT History and Physical Notes * HPI (History of Present Illness) Category Sub-Category Detail Notes Category Not es Dermatology Swelling Pt complains of swelling in both feet for about a week Examination Category Sub-Category Detail Notes Category Not es General Examination Heart: RSR Lungs: clear to auscultatio n Extremities: bilateral trace heather ing leg edema General Appearance: NAD
--- OUTSIDE RECORDS SUMMARY | 2025-02-13 06:45 | XMS_ITS ---
Author Organization [facility] Address [address] [facility] [address] [facility] [address] [place] [id number] Care Team Providers Care Fruit And Vegetable Inspector Name Role Phone Brenda Prajapati Primary Care Provider [phone] Kervin Dillard Unavailable [phone] Allergies Allergen (clinical drug ingredient) Drug/Non Drug Allergy documented on EMR Reaction Allergy Type Onset Date Status Penicillin unknown Drug Allergy Active Results Component Value Reference Range Notes P-Basic Metabolic Panel (BMP ) Reviewed date:02/16/2025 09:15:39 AM Interpretation:gluc 194 Performing Lab: Notes/Report: Test performed by [email or web address] [address] [place] [address] , [address], [place] [address] Zeyad Albright MD, Healthcare Representative CLIA: [id number] Sodium 139 135-145 mmol/L Potassium 4.2 3.5-5.3 mmol/L Chloride 101 97-108 mmol/L CO2 25 20-32 mmol/L Glucose 194 65-99 mg/dL BUN 20 6-20 mg/dL Creatinine 0.93 0.70-1.30 mg/dL Calcium 9.3 8.6-10.4 mg/dL eGFR by Creatinine 95 >59 mL/min/1.73m2 REASON FOR VISIT 2 week f/u Medications Medication SIG (Take, Route, Frequency, Duration) Notes Start Date End Date Status Irbesartan-hydroCHLOROthiazi de 300-12.5 MG 1 tablet Orally Once a day; Duration: 90 days 12/08/2024 Active DULoxetine HCl 60 MG 1 capsule Orally On ce a day; Duration: 90 days 12/08/2024 Active Levothyroxine Sodium 150 MCG 1 tablet in the morning on an empty stomach Orally Once a day; Duration: 90 days Active Diclofenac Sodium 75 MG Take 1 tablet by mouth twice daily; Duration: 90 Active Montelukast Sodium 10 MG 1 tablet Orally Once a day; Duration: 90 days Active Sildenafil Citrate 20 MG 1 to 5 tablet O rally Once a day as needed 05/16/2024 Active Cyclobenzaprine HCl 10 MG 1 tablet at be dtime as needed Orally tid prn 02/11/2024 Active Fluticasone Propionate 50 MCG/ACT 1 spray(s) intranasally once a day; Duration: 90 days 11/01/2021 Active Loratadine 10 MG 1 tablet Orally Once a day; Duration: 90 days 02/13/2025 Active Rosuvastatin Calcium 10 MG 1 tablet Oral ly Once a day; Duration: 90 days Active Furosemide 20 MG 1 tablet Orally Once a day; Duration: 90 days 01/19/2025 Active Problems Problem Type SNOMED Code ICD Code Onset Dates Problem Status W/U Status Risk Notes Problem Hypersomnia (31164643) Hypersomnia (G47.10) Active confirmed Vital Signs Blood pressure systolic 130 mm Hg 02/14/20 25 Blood pressure diastolic 84 mm Hg 025 Heart Rate 77 /min 02/13/2025 Height 67.50 in 02/13/2025 Weight 285 lbs 02/13/2025 BMI 43.97 kg/m2 02/13/2025 Encounters Encounter Location Date Provider Diagnosis [facility] [address] [id number] 02/13/2025 Kervin [place] Peripheral edema R60 .0 ; Hypersomnia G47.10 ; Snoring R06.83 ; Essential (primary) hypertension I10 and Allergic rhinitis, unspecified seasonality, unspecified trigger J30.9 Assessments Encounter Date Diagnosis (ICD Code) Assessment Notes Treatment Notes Treatment Clinical Notes Section Notes 02/13/2025 Peripheral edema (ICD-10 - R60.0) 02/13/2025 Hypersomnia (ICD-10 - G47.10) 02/13/2025 Snoring (ICD-10 - R06.83) 02/13/2025 Essential (primary) hypertension (ICD-10 - I10) 02/13/2025 Allergic rhinitis, unspecified seasonality, unspecified trigger (ICD-10 - J30.9) Plan Of Treatment Medication Medication Name Sig Start Date Stop Date Notes Montelukast Sodium 10 MG 1 tablet Orally Once a day; Duration: 90 days EQ Allergy Relief (Cetirizine) 10 MG Take 1 tablet by mouth once daily Fluticasone Propionate 50 MCG/ACT 1 spray(s) intranasally once a day; Duration: 90 days 11/01/2021 Loratadine 10 MG 1 tablet Orally Once a day; Duration: 90 days 02/13/2025 Furosemide 20 MG 1 tablet Orally Once a day; Duration: 90 days 01/19/2025 Pending Test Test Name Order Date sleep study 02/13/2025 Next Appt Details Follow Up: 2 Months, Reason: Progress Notes * Patrick HAASDOB:[birth year] (60 yo M)Acc No.[id number]:02/13/2025 Patient: Patrick TEIXEIRA Provider: Kwabena Dillard M.D. :1965 A ge:59 Y S ex:Male Date:02/13/2025 Address:[address] [place] [address], [place] [address] Pcp:Brenda Prajapati Subjective: * Chief Complaints: * 1 . 2 week f/u. * HPI: C ardiology: 59 year old male presents with c/o Leg Edema P t here to f/u on bilateral leg swelling. Pt started on Furosemide 20mg 01/19. Pt states that swelling does get better at times but yesterday was pretty bad . Pt states he was on his feet alot yesterday and thinks that may be the cause for the swelling being as bad as it was, swelling has improved today. * ROS: C ONSTITUTIONAL: Fatigue yes, f eels tiredalla the rime, falls asleep easily during the day. D ERMATOLOGY: no R teetee. n o [...] . * Hospitalization/Major Diagno stic Procedure: B [facility] 03/07/2018, [place] [facility] - Detox- [facility] 09/2018, [facility] - medications September-October 2018, [facility] - lower back pain 10/28/2020. * [...] stomach Orally Once a day , Taking Furosemide 20 MG Tablet 1 tablet Orally Once a day , Taking Rosuvastatin Calcium 10 MG Tablet 1 tablet Orally Once a day , Medication List reviewed and reconciled with the patient * Allergies: P enicillin: unknown. Objective: * Vitals: W t: 285, Temp: 98.0, BP: 130/84, HR: 77, Nurse: kk, Ht: 67.50, BMI:43.97. * Examination: G eneral Examination: General Appearance: N AD. H eart: R SR. L ungs:?clear to auscultation. E xtremities: b ilateral trace pitting leg edema. ? Assessment: * Assessment: 1. P eripheral edema - R60.0 (Primary) 2 . H ypersomnia - G47.10 3 . S noring - R06.83 4 . E ssential (primary) hypertension - I10 5 . A llergic rhinitis, unspecified seasonality, unspecified trigger - J30.9 ? Plan: * Treatment: Value Reference Range B UN 20 6-20 - mg/dL * C alcium 9.3 8.6-10.4 - mg/dL * C hloride 101 97-108 - mmol/L * C O2 25 20-32 - mmol/L * C reatinine 0.93 0.70-1.30 - mg/dL * G lucose 194 H 65-99 - mg/dL * P otassium 4.2 3.5-5.3 - mmol/L * S odium 139 135-145 - mmol/L * e GFR by Creatinine 95 >59 - mL/min/1.73m2 * Yesenia Palacios 02/16/2025 09:1 5:34 AM EDT > See phone encounter 2.?Hypersomnia?Imaging: sleep study* Cressona Lorelei Sanders 02/13 02:31:23 PM EDT > faxed to [facility] Sleep Study 3.?Snoring?Imaging: sleep study* Cressona Lorelei Sanders 02/13 02:31:23 PM EDT > faxed to [facility] Sleep Study 4.?Essential (primary) hypertension?Imaging: sleep study* Cressona Lorelei Sanders 02/13 02:31:23 PM EDT > faxed to [facility] Sleep Study 5.?Allergic rhinitis, unspecified seasonality, unspecified trigger? Stop EQ Allergy Relief (Cetirizine) Tablet, 10 MG, Take 1 tablet by mouth once daily;?Refill Fluticasone Propionate Suspension, 50 MCG/ACT, 1 spray(s), intranasally, once a day, 90 days, 3, Refills 1;?Start Loratadine Tablet, 10 MG, 1 tablet, Orally, Once a day, 90 days, 90 Tablet, Refills 1;?Refill Montelukast Sodium Tablet, 10 MG, 1 tablet, Orally, Once a day, 90 days, 90 Tablet,Refills 1.?? * Procedure Codes: 3 075F SYST BP GE 130 - 139MM HG, 3079F DIAST BP 80-89 MM HG * Follow Up: 2 Months * Images: Billing Information: * Visit Code: 38810 Office Visit, Est Pt., Level 4. * Procedure Codes: 3075F SYST BP GE 130 - 139MM HG. 3079F DIAST BP 80-89 MM HG. * Electronic signature of Flores Dillard MD on 05/01/2025 at 11:55 AM EDT Sign off status: Pending * Provider: Kwabena Dillard M.D. Date: 0 02/13/2025 Generated for Arpit martinez/Byron/Sharitting on: 11:55 AM EDT History and Physical Notes * HPI (History of Present Illness) Category Sub-Category Detail Notes Category Not es Cardiology Leg Edema Pt here to f/u o n bilateral leg swelling. Pt started on Furosemide 20mg 01/19. Pt states that swelling does get better at times but yesterday was pretty bad . Pt states he was on his feet alot yesterday and thinks that may be the cause for the swelling being as bad as it was, swelling has improved today Examination Category Sub-Category Detail Notes Category Not es General Examination Heart: RSR Lungs: clear to auscultatio n Extremities: bilateral trace heather ing leg edema General Appearance: NAD
--- OUTSIDE RECORDS SUMMARY | 2025-04-17 05:45 | XMS_ITS ---
Author Organization [facility] Address [address] [facility] [address] [id number] Care Team Providers Care Photonics Engineering Technician Name Role Phone Brenda Prajapati Primary Care Provider [phone] Kervin Dillard [phone] Allergies Allergen (clinical drug ingredient) Drug/Non Drug Allergy documented on EMR Reaction Allergy Type Onset Date Status Penicillin unknown Drug Allergy Active REASON FOR VISIT 2 months Encounters Encounter Location Date Provider Diagnosis [facility] [facility] [address] [id number] 04/17/2025 Kervin Dillard Plan Of Treatment No Information Progress Notes * Patrick HAASDOB:[birth year] (60 yo M)Acc No.[id number]:04/17/2025 Progress Notes Patient: Patrick TEIXEIRA Provider: Kwabena Dillard M.D. :1965 A ge:60 Y S ex:Male Date:04/17/2025 Address:[address] [place] [address], [facility] Pcp:Brenda Prajapati Subjective: * Chief Complaints: * 1 . 2 months. * Medical History: H ypertension, Hypothyroidism, Hyperlipidemia, Allergic Rhinitis, Anxiety disorder, Back pain, Lumbar Disc Disease, Lumbar facet arthropathy. * Surgical History: A mputation of 3 fingers of left hand due to hand getting caught in a machine at work 06/2015, LT Knee , Appendectomy , Sinus . * Hospitalization/Major Diagno stic Procedure: Kwabena ortega [facility] 03/07/2018, [place] [facility] - Detox- [facility] 09/2018, [facility] - medications September-October 2018, [facility] - lower back pain 10/28/2020. [...] Recreational drug use: Rehab. Alcohol: No. * Allergies: P enicillin: unknown. Objective: * Vitals: Assessment: Plan: * Treatment: * Images: Billing Information: * Visit Code: * Procedure Codes: * Electronic signature of Flores Dillard MD on 05/01/2025 at 11:55 AM EDT Sign off status: Pending * Provider: Kwabena Dillard M.D. Date: Generated for Arpit martinez/Byron/Linda on: 11:55 AM EDT
--- OUTSIDE RECORDS SUMMARY | 2025-05-01 11:54 | XMS_ITS | Clinical Summary ---
Author Organization [facility] Address [address] [place] [address] Phone Care Team Providers Care Engineer/Conductor Name Role Phone Unavailable Primary Care Provider Unavailabl e Social History Tobacco Use Types Packs/Day Years Used Date Smoking Tobacco: Never Assessed Sex and Gender Information Value Date Recorded Sex Assigned at Not on file Legal Sex Male 11:58 PM EDT Gender Identity Not on file Sexual Orientation Not on file Plan of Treatment Health Maintenance Due Date Last Done Comments Annual Wellness Exam 1970 DTaP/TDaP/Td (1 - Tdap) 1986 Hepatitis B Vaccine (1 of 3 - 19+ 3-dose series) 1986 Cologuard 2012 Colon Cancer Screening 2012 Colonoscopy 2012 FIT 2012 Sigmoidoscopy 2012 Virtual Colonography 2012 Pneumococcal Vaccine 50+ (1 of 1 - PCV) 2017 Zoster (1 of 2) 2017 COVID-19 Vaccine (2024-2 6 season) 2025 Influenza Vaccine (#1) 2025 Meningococcal B Vaccine Aged Out No l onger eligible based on patient's age to complete this topic
--- OUTSIDE RECORDS SUMMARY | 2025-05-01 11:54 | XMS_ITS | Clinical Summary ---
Author Organization [facility] Address [address] [place] [address] Care Team Providers Care Engine Specialist Name Role Phone Pcp, No Primary Care Provider [phone] Source Comments This information has been disclosed to you from confidential records protectedfrom disclosure by state law. You shall make no further disclosure of thisinformation without the specific, written, and informed release of theindividual to whom it pertains, or as otherwise permitted by law. A generalauthorization for the release of medical or other information is not sufficientfor the purposes of therelease of HIV test results or diagnoses. [id number] Allergies Active Allergy Reactions Criticality Noted Date Comments Penicillins 06/16/2015 Medications lisinopril (PRINIVIL,ZESTRI L) 10 MG tablet Take 10 mg by mouth daily. Active Active Problems Problem Noted Date Diagnosed Date Amputation of finger, left 06/23/2015 Immunizations Immunization Administration Dates Next Due tdap 06/16/2015 Social History Tobacco Use Types Packs/Day Years Used Date Smoking Tobacco: Never Smokeless Tobacco: Current Chew Alcohol Use Standard Drinks/Week Comments Yes 0 (1 standard drink = 0.6 oz pur e alcohol) occasional Sex and Gender Information Value Date Recorded Sex Assigned at Not on file Legal Sex Male 3:21 PM EST Gender Identity Not on file Sexual Orientation Not on file Last Filed Vital Signs Vital Sign Reading Time Taken Comments Blood Pressure 137/78 12/27/2015 1:58 PM EDT Pulse 102 12/27/2015 1:58 PM EDT Temperature 37.3 C (99.2 F) 12/27/2015 1:58 PM EDT Respiratory Rate 16 12/27/2015 1:58 PM EDT Oxygen Saturation 94% 12/27/2015 1:58 PM EDT Inhaled Oxygen Concentration 94% 12/27/2015 1 :58 PM EDT Weight 107 kg (236 lb) 12/27/2015 1:58 PM EDT Height 173 cm (5' 8.11 ) 12/27/2015 1:58 PM EDT Body Mass Index 35.77 12/27/2015 1:58 PM EDT Plan of Treatment Not on file Insurance [employer] [place] Member Subscriber Plan / Payer (Ef fective 2015-Present) Name:Patrick Breaux Relation to Subscriber:Self Name:Patrick Breaux Payer ID:[id number] Group ID:Not on file Type:Work Comp Address: [place] [address] Care Teams Engine Specialist Relationship Specialty Start Date End Date Pcp, No No Address PCP - General Pediatrics 06/16/15
--- OUTSIDE RECORDS SUMMARY | 2025-05-01 11:54 | XMS_ITS | Encounter Summary ---
Author Organization [place] [address] Care Team Providers Care Paint Prepper Name Role Phone Unavailable Primary Care Provider Unavailabl e Encounter Details Date Type Department Care Team (Late st Contact Info) Description 10/29/2008 Orders Only [facility] [address] [address] [place] [address] Forrest Botello MD [address] [id number] Social History Tobacco Use Types Packs/Day Years Used Date Smoking Tobacco: Never Assessed Sex and Gender Information Value Date Recorded Sex Assigned at Not on file Legal Sex Male 11:58 PM EDT Gender Identity Not on file Sexual Orientation Not on file documented as of this encounter Plan of Treatment Not on file documented as of this encounter Procedures Procedure Name Priority Date/Time Associated Diagnosis Comments ECHO - HISTORICAL Routine 10/29/2008 12: 00 AM EDT documented in this encounter Results * ECHO - HISTORICAL (10/29/2008 12:00 AM EDT) Anatomical Region Laterality Modality Other 10/29/2008 Narrative 07/05/2011 1:14 AM EST NOTICE: This report was electronically copied on 08/20/2011 from historical data generated by a practice prior to that practice using [facility] for Medical Records. Performing Provider: DEYA us Forrest Botello MD IMG ECHO ORDERABLES Final Resu lt documented in this encounter Visit Diagnoses Not on filedocumented in this encounter
--- OUTSIDE RECORDS SUMMARY | 2025-05-01 11:54 | XMS_ITS | Clinical Summary ---
Author Organization [facility] Address [address] [place] [address] Care Team Providers Care Seam Rubbing Machine Operator Name Role Phone Kalen Boswell MD Unavailable [phone] Allergies Active Allergy Reactions Criticality Noted Date Comments Penicillins Unknown - Patient st ates they do not know rxn details Low 01/06/2010 Medications lisinopril-hydro CHLOROthiazide 20-25 MG tablet Take 1 tablet by mouth 1 (one) time each day. 12/23/2020 Active sertraline (Zoloft) 100 MG tablet 11/23/2020 Active diclofenac (Voltaren) 75 MG EC tablet Take 75 mg by mouth 2 (two) times a day. 12/29/2020 Active cetirizine (Allergy Relief Cetirizine) 10 MG tablet Take 10 mg by mouth 1 (one) time each day. Active LEVOTHYROXINE SODIUM PO Take by mouth. Active Active Problems Problem Noted Date Diagnosed Date Amputation of finger, left 06/23/2015 Family History Medical History Relation Name Comments Heart attack Father Back pain/problems Mother Cancer Mother Heart Problem Mother Back pain/problems Other Heart attack Other Stroke Other Relation Name Status Comments Father Mother Alive Other Social History Tobacco Use Types Packs/Day Years Used Date Smoking Tobacco: Never Smokeless Tobacco: Current Alcohol Use Standard Drinks/Week Comments Not Currently 0 (1 standard drink = 0.6 oz pur e alcohol) Sex and Gender Information Value Date Recorded Sex Assigned at Not on file Legal Sex Male 8:47 PM EDT Gender Identity Not on file Sexual Orientation Not on file Last Filed Vital Signs Vital Sign Reading Time Taken Comments Blood Pressure 169/83 12/15/2022 9:15 AM EDT Pulse - - Temperature - - Respiratory Rate - - Oxygen Saturation - - Inhaled Oxygen Concentration - - Weight 117 kg (258 lb) 12/15/2022 9:15 AM EDT Height 172.7 cm (5' 8 ) 12/15/2022 9:15 AM EDT Body Mass Index 39.23 12/15/2022 9:15 AM EDT Plan of Treatment Health Maintenance Due Date Last Done Comments [facility]-Depression Screening 1967 [facility]-Infant/Child/Adol SDOH Screenings 1965 [facility]- SDOH Screenings 1985 [facility]-Adult SDOH Screenings 1985 [facility]-Hepatitis B Vaccines (1 of 3 - 19+ 3-dose series) 1986 CT Colonography 2012 Colonoscopy 2012 FIT-DNA 2012 FIT 2012 FOBT 2012 Sigmoidoscopy 2012 [facility]-Colorectal Cancer Screening 2012 [facility]-Pneumococcal Vaccine: 50 + Years (1 of 1 - PCV) 2017 [facility]-Zoster Vaccines (1 of 2) 2017 [id number] Vaccine (1 - 20 24-25 season) 2025 [facility]-Influenza Vaccine (#1) 2025 [facility]-DTaP,Tdap,and Td Vaccine s (2 - Td or Tdap) 06/16/2025 06/16/2015 HPV Vaccines Aged Out No longer eligi ble based on patient's age to complete this topic [facility]-HIB Vaccines Aged Out No longer e ligible based on patient's age to complete this topic [facility]-Hepatitis A Vaccines Aged Out No longer eligible based on patient's age to complete this topic [facility]-IPV Vaccines Aged Out No longer e ligible based on patient's age to complete this topic [facility]-Rotavirus Vaccines Aged Out No lo nger eligible based on patient's age to complete this topic Insurance ANTHEM Care Teams Seam Rubbing Machine Operator Relationship Specialty Start Date End Date Kalen Boswell MD [address] [facility] [address] [place] [address] Surgeon Neurosurgery 02/01/21
--- NOTE | 2025-05-01 11:56 | XR_ITS ---
FINAL REPORT TECHNIQUE: Chest PA & Lateral CLINICAL HISTORY: ..cough, right rib pain COMPARISON: None FINDINGS: 2 views of the chest were performed. The heart size is normal. The mediastinum is within normal limits. The lungs are underinflated. There is no acute cardiopulmonary process. There are no pleural effusions. There is no pneumothorax. The bony thorax appears intact. IMPRESSION: No acute cardiopulmonary process. Reviewed, Interpreted and Dictated by Manpreet Stovall MD Transcribed by Tracy Sapp Authenticated and [facility]
--- NOTE | 2025-05-01 11:56 | XR_ITS ---
FINAL REPORT CLINICAL HISTORY: .cough, right rib pain COMPARISON: None FINDINGS: 3 views of the right ribs were obtained. There is no displaced, acute fracture identified. The visualized lungs are clear. No pneumothorax is identified. IMPRESSION: No displaced rib fracture or pneumothorax identified. Reviewed, Interpreted and Dictated by Manpreet Stovall MD Transcribed by Tracy Sapp Authenticated and [facility]
--- OUTSIDE RECORDS SUMMARY | 2025-05-01 11:56 | XMS_ITS | Patient Health Record ---
[facility] [address] [facility] [address] [facility] [address] [place], [place] [id number] Care Team Providers Care Protection Consultant Name Role Phone Brenda Prajapati Primary Care Provider Nishant Kervin Unavailable [phone] Sherie Del Rosario Unavailable [phone] Allergies Allergen (clinical drug ingredient) Drug/Non Drug [...] - 38 plat 173 100 - 400 Glycohemoglobin A1c (in hous e) Reviewed date:12/10/2024 09:59:43 AM Interpretation:6.4 Performing Lab: Notes/Report: 6.4 glycohemoglobin 6.4% 5 - 6.5 % P-Comprehensive Metabolic Pa shell (CMP) Reviewed date:12/10/2024 09:59:43 AM Interpretation:gluc 135, alt 63 Performing Lab: Notes/Report: Test performed by [facility], [facility] [address] [place] [address] , [address], [place] [address] Zeyad Albright MD, [employer] CLIA: [id number] Sodium 139 135-145 mmol/L Potassium 3.6 3.5-5.3 [...] Interpretation:Normal Performing Lab: Notes/Report: Test performed by [facility] [address] [place] [address] , [place] [address] Zeyad Albright MD, [employer] CLIA: [id number] Thyroxine Free (free T4) 1.09 0.86-1.76 ng/dL P-Lipid Panel Reviewed date:12/10/2024 09:59:43 AM Interpretation:Normal Performing Lab: Notes/Report: Test performed by [facility] [address] [place] [address] , [address], [place] [id number] Zeyad Albright MD, [employer] CLIA: [id number] Cholesterol 156 <200 mg/dL Triglycerides 87 <150 [...] Interpretation:6.27 Performing Lab: Notes/Report: Test performed by [facility] [address] [place] [address] , [place] [address] Zeyad Albright MD, [employer] CLIA: [id number] TSH 6.27 0.43-5.25 mU/L P-Microalbumin/Creatinine, R andom Urine Sample Reviewed date:12/10/2024 09:59:43 AM Interpretation:Normal Performing Lab: Notes/Report: Test performed by [facility] [address] [place], [place] [address] , [address], [place] [address] Zeyad Albright MD, [employer] CLIA: [id number] Albumin/Creatinine Ratio, Urine <10.45 0-30 ug/m g Microalbumin, Urine, Random <0.3 Creatinine, Urine 28.7 P-Basic Metabolic Panel (BMP ) Reviewed date:02/16/2025 09:15:39 AM Interpretation:gluc 194 Performing Lab: Notes/Report: Test performed by [facility] , [address], [place] [address] Zeyad Albright MD, [employer] CLIA: [id number] Sodium 139 135-145 mmol/L Potassium 4.2 3.5-5.3 mmol/L Chloride 101 97-108 mmol/L CO2 25 20-32 mmol/L Glucose 194 65-99 mg/dL BUN 20 6-20 mg/dL Creatinine 0.93 0.70-1.30 mg/dL Calcium 9.3 8.6-10.4 mg/dL eGFR by Creatinine 95 >59 mL/min/1.73m2 CBC Fingerstick (in house) ( Not yet reviewed by provider) Interpretation: Performing Lab: Notes/Report: wbc 12.1 3.5 - 10 lym 31.8% 15 - 50 mid 8.1% 2 - 15 gran 60.1% 35 - 80 rbc 5.16 3.5 - 5.5 hgb 15.6 11.5 - 16.5 hct 46.6 35 - 55 mcv 90.2 75 - 100 mch 30.3 25 - 35 mchc 33.6 31 - 38 plat 84 100 - 400 Covid test (in house) Reviewed date:08/04/2024 01:20:42 PM Interpretation:neg Performing Lab: Notes/Report: neg Result: neg CBC Fingerstick (in house) Reviewed date:08/04/2024 [...] - 38 plat 246 100 - 400 Influenza Screen (in house) Reviewed date:08/04/2024 01:20:54 PM Interpretation:neg Performing Lab: Notes/Report: neg results neg Reason For Referral Reason Prefers a Sunday rian t Diagnosis 1 Encounter for vasect chelsey counseling (Z30.09) Referral Organization [facility] Referring Provider First Name Kervin Referring Provider Last Name Nishant Referring Provider Speciality Family Pra ctice Referred Provider Art, Miguel A Referred Provider Specialty Urology General Notes Lorelei Polk 024 2:52:55 PM > faxed to Dr. Rivero Referral Priority Routine Medications Medication SIG (Take, Route, Frequency, Duration) Notes Start Date End Date Status Doxycycline Hyclate 100 MG 1 capsule Ora lly twice a day; Duration: 7 days 05/01/2025 Active Cyclobenzaprine HCl 10 MG 1 tablet at be dtime as needed Orally tid prn 02/11/2024 Not-Taking Montelukast Sodium 10 MG 1 tablet Orally Once a day; Duration: 90 days Not-Takin g Loratadine 10 MG 1 tablet Orally Once a day; Duration: 90 days 02/13/2025 Not-Takin g Promethazine-DM 6.25-15 MG/5ML 5 mL as needed Orally every 6 hrs 05/01/2025 Active Fluticasone Propionate 50 MCG/ACT 1 spray(s) intranasally once a day; Duration: 90 days 11/01/2021 Not-Takin g DULoxetine HCl 60 MG 1 capsule Orally On ce a day; Duration: 90 days 12/08/2024 Not-Taking Irbesartan-hydroCHLOROthia zide 300-12.5 MG 1 tablet Orally Once a day; Duration: 90 days 12/08/2024 Not-Takin g Diclofenac Sodium 75 MG Take 1 tablet by mouth twice daily; Duration: 90 Not-Taking Sildenafil Citrate 20 MG 1 to 5 tablet O rally Once a day as needed 05/16/2024 Not-Taking Furosemide 20 MG 1 tablet Orally Once a day; Duration: 90 days 01/19/2025 Not-Takin g Rosuvastatin Calcium 10 MG 1 tablet Oral ly Once a day; Duration: 90 days Not-Takin g Levothyroxine Sodium 150 MCG 1 tablet in the morning on an empty stomach Orally Once a day; Duration: 90 days Not-Takin g Immunizations Vaccine Route Administration Date Status Comme nts COVID 19 Moderna Unknown 10/02/2020 Administered Problems Problem Type SNOMED Code ICD Code Onset Dates Problem Status W/U Status Risk Notes Problem Essential hypertension (84093719) Essential (primary) hypertension (I10) Active confirmed Problem Sciatica (08273404) Sciatica (M54.30) Active co nfirmed Problem Essential hypertension (12287801) Essential hypertension (I10) Active confirmed Problem Seasonal allergy (355262316) Seasonal allergies (J30.2) Active confirmed Problem Environmental allerg y (308958284) Environmental allergies (Z91.048) Active confirmed Problem Impaired fasting glucose (241973881) Impaired fasting glucose (R73.01) Active confirmed Problem Sciatica (60385695) Lumbago with sciatica, right side (M54.41) Active confirmed Problem Alcohol dependen ce with unspecified alcohol-induced disorder (F10.29) Active confirmed Problem Sciatica (12218729) Lumbago with sciatica, left side (M54.42) Active confirmed Problem Degeneration of lumbar intervertebral disc (78461040) Lumbar degenerative disc disease (M51.36) Active confirmed Problem Acquired hypothyroidism (995314613) Acquired hypothyroidism (E03.9) Active confirmed Problem Erectile dysfunction (disorder) (731658470) Erectile dysfunction, unspecified erectile dysfunction type (N52.9) Active confirmed Problem Hypersomnia (59174357) Hypersomnia (G47.10) Active confirmed Problem Dyslipidemia (823982060) Dyslipidemia (E78.5) Active confirmed Problem Sciatica (38158127) Acute midlin e low back pain with right-sided sciatica (M54.41) Active confirmed Problem Pure hypercholesterolemia (726593746) Pure hypercholesterolemia (E78.00) Active confirmed Problem Sciatica (77728159) Right-sided low back pain with right-sided sciatica, unspecified chronicity (M54.41) Active confirmed Problem Anxiety depression (737333583) Anxiety with depression (F41.8) Active confirmed Problem Skin sensation disturbance (64321687) Bilateral leg paresthesia (R20.2) Active confirmed Problem Allergic rhinitis (79390806) Allergic rhinitis, unspecified seasonality, unspecified trigger (J30.9) Active confirmed Problem Sciatica (23561517) Midline low back pain with right-sided sciatica, unspecified chronicity (M54.41) Active confirmed Problem Sciatica (40228140) Bilateral lo w back pain with right-sided sciatica, unspecified chronicity (M54.41) Active confirmed Vital Signs Heart Rate 92 /min 05/01/2025 Blood pressure diastolic 86 mm Hg 05/01/2025 Height 67.50 in 05/01/2025 Blood pressure systolic 142 mm Hg 05/01/2025 Weight 278.2 lbs 05/01/2025 BMI 42.92 kg/m2 05/01/2025 Encounters Encounter Location Date Provider Diagnosis [facility] [address] [place] [id number] 05/16/2024 Kervin [facility] Erectile dysfunction , unspecified erectile dysfunction type N52.9 and Encounter for vasectomy counseling Z30.09 [facility] [address] [place] [id number] 08/04/2024 Sherie Del Rosario AGE (acute gastroenteritis) K52.9 [facility] [address] [place] [id number] 11/04/2024 Kervin Wendover Acute URI J06.9 [facility] [address] [place], [place] [id number] 12/08/2024 Kervin Wendover Essential (primary) hypertension I10 ; Dyslipidemia E78.5 ; Acquired hypothyroidism E03.9 ; Anxiety with depression F41.8 ; Impaired fasting glucose R73.01 and Allergic rhinitis, unspecified seasonality, unspecified trigger J30.9 [facility] [address] [place] [id number] 12/26/2024 Kervin Wendover Essential (primary) hypertension I10 and Anxiety with depression F41.8 [facility] [address] [place], [place] [id number] 01/19/2025 Kervin Wendover Peripheral edema R60 .0 [facility] [address] [facility] [address] [place], [place] [id number] 02/13/2025 Kervin Wendover Peripheral edema R60 .0 ; Hypersomnia G47.10 ; Snoring R06.83 ; Essential (primary) hypertension I10 and Allergic rhinitis, unspecified seasonality, unspecified trigger J30.9 [facility] [address] [facility] [address] [place], [place] [id number] 05/01/2025 Kervin Wendover Right-sided chest wa ll pain R07.89 and Acute cough R05.1 [facility] [address] [place], [place] [id number] 06/02/2024 R Daron Alo [facility] [address] [place], [place] [id number] 06/02/2024 R Daron Alo [facility] [address] [place], [place] [id number] 12/10/2024 Kervin Wendover [facility] [address] [place], [place] [id number] 12/16/2024 R Daron Alo Screening for colon cancer Z12.11 [facility] [address] [place], [place] [id number] 01/13/2025 R Daron Alo [facility] [address] [place], [place] [id number] 02/02/2025 R Daron Alo [facility] [address] [place], [place] [id number] 02/03/2025 R Daron Alo [facility] [address] [place], [place] [id number] 02/16/2025 Kervin [facility]over Assessments Encounter Date Diagnosis (ICD Code) Assessment Notes Treatment Notes Treatment Clinical Notes Section Notes 05/16/2024 Erectile dysfunction, unspecified erectile dysfunction type (ICD-10 - N52.9) 05/16/2024 Encounter for vasectomy counseling (ICD-10 - Z30.09) 08/04/2024 AGE (acute gastroenteritis) (ICD-10 - K52.9) stressed good fluid intake; , bland foods in small amounts with good fluid intake--small amounts frequently; no soda or caffeine 11/04/2024 Acute URI (ICD-10 - J06.9) 12/08/2024 Essential (primary) hypertension (ICD-10 - I10) 12/16/2024 Screening for colon cancer (ICD-10 - Z12.11) 12/26/2024 Essential (primary) hypertension (ICD-10 - I10) Much better control today 12/26/2024 Anxiety with depression (ICD-10 - F41.8) 01/19/2025 Peripheral edema (ICD-10 - R60.0) 12/08/2024 Dyslipidemia (ICD-10 - E78.5) 02/13/2025 Hypersomnia (ICD-10 - G47.10) 02/13/2025 Peripheral edema (ICD-10 - R60.0) 05/01/2025 Right-sided chest wall pain (ICD-10 - R07.89) 05/01/2025 Acute cough (ICD-10 - R05.1) 02/13/2025 Snoring (ICD-10 - R06.83) 12/08/2024 Acquired hypothyroidism (ICD-10 - E03.9) 02/13/2025 Essential (primary) hypertension (ICD-10 - I10) 12/08/2024 Anxiety with depression (ICD-10 - F41.8) 02/13/2025 Allergic rhinitis, unspecified seasonality, unspecified trigger (ICD-10 - J30.9) 12/08/2024 Impaired fasting glucose (ICD-10 - R73.01) 12/08/2024 Allergic rhinitis, unspecified seasonality, unspecified trigger (ICD-10 - J30.9) Plan Of Treatment Pending Test Test Name Order Date X ray : Chest 05/01/2025 X ray : Rib series, right 05/01/2025 CBC Fingerstick (in house) 05/01/2025 sleep study 02/13/2025 Cologuard 12/16/2024 Cologuard 04/18/2024 Insurance Providers Payer Name Payer Address Payer Phone Subscriber Number Group Number Insured Name Patient Relationship to Insured Coverage Start Date Coverage End Date [facility] [facility] [id number] [place] [address] [id number] Patrick Breaux Self - patient is the insured Medications Administered Medication Instructions Date of Administration Dosage Notes Dexamethasone 12/29/2020 1 mL Dexamethasone 11/01/2021 1 mL Dexamethasone 02/11/2024 1 mL Dexamethasone 2024 1 mL Medical (General) History Medical History History ICD Code Hypertension Hypothyroidism Hyperlipidemia Allergic Rhinitis Anxiety disorder back pain Lumbar Disc Disease Lumbar facet arthropathy Surgical History Surgery Date(Month/Year) 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
== END 2025-05-01 23:59 | disposition home or self-care (01) ==
LOC: RAD 11:53
PROVIDERS: PCP Family Medicine; Visit Provider Family Medicine
DX: R07.89 Other chest pain (principal); R05.1 Acute cough
CPT/HCPCS: 71046; 71101